=== PATIENT | female | born 1955 | race Caucasian/White ===

== ENCOUNTER → 2018-07-21 | Outpatient (CLI) | payer MEDICARE ==
[~2018-07-21] MED LIST: CLONIDINE0.1 MG PO; HYDROCODONE BIT1 T11 PO; IBUPROFEN IB200 MG PO; LISINOPRIL2.5 MG PO; NKHM
[2018-07-22 08:08] LABS: ALPHA-1-ANTITRYPSIN, SERUM 175 mg/dL (90-200)
== END | disposition home or self-care (01) ==
LOC: LAB 11:23
PROVIDERS: Internal Medicine Critical Care Medicine
DX: J44.9 Chronic obstructive pulmonary disease, unspecified (principal)

== ENCOUNTER 2019-06-20 13:40 | Inpatient (IN) | payer MEDICARE ==
[2019-06-20] VITALS (9 sets, daily range): BP systolic 122–187; BP diastolic 60–86
[~2019-06-20] VITALS: Ht 157.5 cm; Wt 41.4 kg
--- NOTE | ~2019-06-20 | PR ---
[place], [place] PROGRESS NOTE NAME: MARY ALICE FERRERA [facility] #: [id number] UNIT #: [id number] ROOM: 402 DOCTOR: YAAKOV SANTIAGO MD BIRTHDATE: [birth year] DOS: 06/23/2019 SUBJECTIVE: She has no chest pain, breathing is fine, but she has oxygen on. No leg pain dizziness or palpitations. Her appetite is fine. Mood is somewhat subdued. PHYSICAL EXAMINATION: GENERAL: The patient looks pale. VITAL SIGNS: Pulse is regular at 84 beats per minute, blood pressure 139/70. NECK: JVP is normal. LUNGS: Breath sounds are severely diminished bilaterally. EXTREMITIES: No edema in lower extremities. IMPRESSION: This patient most likely had non-ST elevation acute myocardial infarction. She does have many risk factors for coronary artery disease including severe peripheral vascular disease of the lower extremities. RECOMMENDATIONS: Diagnostic heart catheterization and selective coronary angiogram. Her Sawyer test is normal; therefore, transradial approach will be used. I discussed the risks and the benefits including CVA, [place], , hematoma, vascular injury and renal insufficiency and bleeding with the and the patient. They understand and would like to proceed. I talked to her nurse about this plan and will touch bases with Dr. Jane. YAAKOV SANTIAGO MD CM:PNTRANS [id number] YAAKOV SANTIAGO MD 07/04/19 0758 interface
--- NOTE | ~2019-06-20 | EKG ---
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
--- NOTE | ~2019-06-20 | CON ---
[place], [place] REPORT OF CONSULTATION NAME: [facility]ARY ALICE [id number] UNIT #: [id number] ROOM: [facility] DOCTOR: YAAKOV SANTIAGO MD BIRTHDATE: [birth year] DOS: 06/22/2019 HISTORY OF PRESENT ILLNESS: This is a 64-year-old -Sy[place] woman with a history of severe COPD, who is on oxygen chronically. She had protracted respiratory failure in December and required a tracheostomy and ventilation for some time. She also has significant peripheral vascular disease and has had interventions done, including the surgery. This was done in December. Following that, she had some slow recovery and stayed in a detention. She also had developed C. diff colitis and has been anemic for some time now. She has coronary artery disease. In 2013, she had T-wave inversion in anterior chest leads and a diagnostic heart catheterization was done in [facility]. According to the , blockage was found, but the intervention could not be done and she has not had any intervention of her coronary arteries. She does have essential hypertension and hyperlipidemia as well. She has never had a stroke, diabetes mellitus or any kidney problems. She was admitted to the hospital because of increasing shortness of breath and weakness and tiredness. She had an abnormal ECG and I was asked to evaluate and also troponin level was slightly above normal. HOME MEDICATIONS: Include Symbicort, Spiriva, acetaminophen, alprazolam 0.25 mg q.8 h., ProSource Plus for nutrition, aspirin 81 daily, atorvastatin 80 mg daily, cholecalciferol 1000 units daily, diltiazem 30 mg daily, lisinopril 20 mg at bedtime, loperamide 2 mg q.6 h. p.r.n., mirtazapine 50 mg at night, Protonix 40 daily, and Carafate 1 g before meals. PHYSICAL EXAMINATION: GENERAL: This reveals a patient who is alert, oriented and slim. She is pale looking. She is not diaphoretic, not jaundiced. There is no cyanosis. There is no thyromegaly or finger clubbing. VITAL SIGNS: Pulse is 96 and regular, blood pressure 134/80. NECK: JVP is normal. HEART: There is no carotid bruit. A little, very brief systolic sound is audible over the right carotid artery. Cardiac auscultation revealed no murmurs or extra heart sounds. Pedal pulses are very difficult to feel. There are fairly good femoral pulses, with bruit over the right femoral artery. RESPIRATORY: Breath sounds are severely diminished, more so on the left side with adventitious sounds. ABDOMEN: There is no pulsatile mass or bruit. Liver is not enlarged. It is nontender. DIAGNOSTIC STUDIES: ECGs have shown normal sinus rhythm with T-wave inversion in V1-V4. My interpretation of ECG in 2013 was pretty much the same when she had a diagnostic heart catheterization done. LABORATORY DATA: Troponin I levels, 0.188 and 0.119 and 0.90. BUN is 12, creatinine 0.84, serum albumin is 2.4 g/dL, potassium 3.5. Hemoglobin is 10.8 g/dL. IMPRESSION: [place], [place] REPORT OF CONSULTATION NAME: MARY ALICE FERRERA UNIT #: [id number] ROOM: [facility] DOCTOR: YAAKOV SANTIAGO MD BIRTHDATE: [birth year] 1. This patient with coronary artery disease has some slightly increased troponin I level which could represent a [id number] acute myocardial infarction/(NSTEMI). The other possibility is tachycardia and anemia may be contributing to this. 2. Peripheral vascular disease is fairly severe. She does have symptoms when she ambulates, but these are better than before. Intervention was done in November. 3. Moderate anemia is present. 4. Severe chronic obstructive pulmonary disease. RECOMMENDATIONS: 1. An echocardiogram has already been ordered. I will review this. I should add that back in 2013, her LV systolic function was moderately reduced. I believe a Lexiscan Cardiolite study should be performed in this patient to look for any significant ischemia. 2. Sinus tachycardia is being treated with low-dose beta ratna. Diltiazem was discontinued and this has slowed down her heart rate. I think dose can be increased to 50 mg metoprolol tartrate b.i.d. to further reduce the heart rate because of highly suspected NSTEMI. I thank you for this consult. YAAKOV SANTIAGO MD CM:CONSTR:REPORT OF CONSULTATION 1131 06/23/19 0619 interface
--- NOTE | ~2019-06-20 | EKG ---
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: Minoo Sinclair : 1955 Requested By: YAAKOV SANTIAGO Order Number: [id number] Reading MD: Yaakov Santiago MD Measurements Intervals [place] Rate: 96 P: 94 [place]: 128 QRS: 119 QRSD: 104 T: 101 QT: 404 QTc: 511 Interpretive Statements Sinus rhythm,Consider RVH w/ secondary repol abnormality,Abnormal T, consider ischemia in anterior and lateral,ST elevation, consider inferior injury Prolonged QT interval Compared to ECG 06/20/2019 13:50:41 T-wave abnormality now present Possible ischemia now present ST (T wave) deviation now present Myocardial infarct finding now present Prolonged QT interval now present Sinus tachycardia no longer present Right bundle-branch block no longer present Electronically Signed On 06-24-2019 14:20:09 PDT by Yaakov Santiago MD CM:EKGRPT:ELECTROCARDIOGRAM REPORT 1800 1420 YAAKOV AYALA DRAFT REPORT YAAKOV SANTIAGO MD
--- NOTE | ~2019-06-20 | EKG ---
[place], [place] ELECTROCARDIOGRAM REPORT NAME: MARY ALICE FERRERA UNIT #: [id number] ROOM: 402 DOCTOR: LUCY DRAFT REPORT BIRTHDATE: [birth year] [facility] Test Date: 2019-06-21 Test Time: 17:49:39 Pat Name: MARY ALICE FERRERA Department: Room: 402 Gender: F Mac Developer: Eliana Augustin : 1955 Requested By: ANA GARLAND Order Number: [id number] Reading MD: Danii Sharpe MD Measurements Intervals [place] Rate: 115 P: 84 [place]: 130 QRS: 112 QRSD: 100 T: 81 QT: 365 QTc: 505 Interpretive Statements Sinus tachycardia Probable left atrial enlargement Borderline low voltage, extremity leads T wave inversion in V1-4, consider ischemia Borderline ST elevation, lateral leads Prolonged QT interval Compared to ECG 06/20/2019 13:50:41 ST (T wave) deviation now present Prolonged QT interval now present Right bundle-branch block no longer present Electronically Signed On 06-24-2019 14:18:53 PDT by Danii Sharpe MD CM:EKGRPT:ELECTROCARDIOGRAM REPORT [id number] 1418 ANA AYALA DRAFT REPORT ANA GARLAND
--- NOTE | ~2019-06-20 | EKG ---
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
[~2019-06-20 13:40] MED LIST changes: -ARTHRITIS PAIN650 MG PO; -ASPIR LOW81 MG PO; -ATORVASTATIN CA80 M1 PO; -Carafate1 GM PO; -DILTIAZEM HCL30 MG PO; -IMODIUM A-D2 M2 PO; -LISINOPRIL20 MG PO; -MIRTAZAPINE15 M2 PO; -PANTOPRAZOLE SO40 MG PO; -PROSOURCE PLUS30 ML PO; -SPIRIVA RESPIMAT4 GM INH; -SYMB160 INH; -TYLENOL325 M1 PO; -VITAMIN D31000 UNI1 PO; -XANAX0.25 MG PO
[2019-06-20 14:22] LABS: HEMATOCRIT 22.9 % (37.0-47.0); HEMOGLOBIN 7.2 g/dl (12.0-16.0); MEAN CELL VOLUME 91.6 fl (81.0-99.0); MEAN CORPUSCULAR HGB 28.8 pg (27.0-31.0); MEAN CORPUSCULAR HGB CONC 31.4 g/dl (33.0-37.0); MEAN PLATELET VOLUME 8.9 fl (9.6-12.3); PLATELET COUNT AUTOMATED 377 10*3/uL (130-400); RED CELL DISTRI WIDTH 14.9 % (0-14.5); WHITE BLOOD COUNT 16.3 10*3/uL (4.8-10.8)
[2019-06-20 14:36] LABS: ACT PARTIAL THROMBO TIME 27.3 SECONDS (20.0-32.1)
[2019-06-20 14:41] LABS: ALBUMIN 2.6 gm/dl (3.1-4.5); ALKALINE PHOSPHATASE 80 U/L (45-117); BUN 14 mg/dl (7-24); CHLORIDE 101 mmol/L (98-107); CREATININE 0.86 mg/dL (0.55-1.02); POTASSIUM 3.6 mmol/L (3.5-5.1); SGOT/AST 16 IU/L (3-35); SGPT/ALT 14 U/L (12-78); SODIUM 136 mmol/L (136-145)
[2019-06-20 14:42] LABS: TROPONIN I < 0.015 ng/ml (<0.045)
[2019-06-20 14:44] LABS: TOTAL CELLS COUNTED 100 #CELLS
[2019-06-20 14:45] LABS: PLATELET SUFFICIENCY NORMAL (NORMAL)
[2019-06-20 16:16] LABS: BILIRUBIN NEGATIVE (NEGATIVE); BLOOD TRACE-INTACT (NEGATIVE); CLARITY CLEAR (CLEAR); COLOR YELLOW (YELLOW); GLUCOSE NEGATIVE (NEGATIVE); KETONE NEGATIVE (NEGATIVE); LEUKO ESTERASE 2+ (NEGATIVE); NITRITE NEGATIVE (NEGATIVE); UROBILINOGEN 0.2 E.U./dl (0.2-1.0)
[2019-06-20 16:42] LABS: YEAST 1+
--- NOTE | 2019-06-20 18:40 | NUR ---
Spoke with Katelyn MCKEON stated that she is not able to take the this time.
--- NOTE | 2019-06-20 18:45 | NUR ---
Spoke with Mona RN yard supervisor cotton gin, informed her that the floor can not take the Pt at this time.
--- NOTE | 2019-06-20 18:59 | NUR ---
DR SEGURA NOTIFIED OF TEMP 99.1 PRIOR TO STARTING BLOOD. ORDER FOR TYLENOL RECEIVED.
[2019-06-20] MEDS ORDERED: Carafate1 GM PO (19:37)
[2019-06-20] MEDS ORDERED: ATORVASTATIN CA80 M1 PO (19:37)
--- NOTE | 2019-06-20 19:50 | NUR ---
Time: 1951 A 64 year old FEMALE admitted to 4E under services of RAMEZ MANRIQUEZ DO. Pt. arrived via bed from ER. Chief complaint: PNEUMONIA,UTI. AMARILIS MILES
[2019-06-20] MEDS ORDERED: LISINOPRIL20 MG PO (20:04)
[2019-06-20] MEDS ORDERED: PANTOPRAZOLE SO40 MG PO (20:06)
--- NOTE | 2019-06-20 20:26 | NUR ---
NOTIFIED OF BP 174/86 MANUALLY. HOME MED REC UNABLE TO BE UPDATED PATIENT DOES NOT KNOW HER MEDICATIONS/DOSES. STATES HE WILL BRING IN LIST TONIGHT OR TOMORROW. PATIENT IS ONLY SURE THAT SHE TAKES LISINOPRIL 20MG QHS. INSTRUCTED TO GIVE ONE DOSE OF HOME LISINOPRIL TONIGHT. ALSO DISCUSSED 1500 CCs FLUID BOLUSES ORDERED. INSTRUCTED TO ATTEMPT TO GET ANOTHER IV ACCESS & ADMINISTER FLUIDS ORDERED. DISCUSSED HX CHF. ALSO DISCUSSED PATIENT BEING ADMITTED MS. 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
[2019-06-20] MEDS ORDERED: ARTHRITIS PAIN650 MG PO (21:09)
[2019-06-20] MEDS ORDERED: ASPIR LOW81 MG PO (21:14)
[2019-06-20] MEDS ORDERED: TYLENOL325 M1 PO ×2 (21:15)
[2019-06-20] MEDS ORDERED: DILTIAZEM HCL30 MG PO (21:16)
[2019-06-20] MEDS ORDERED: SYMB160 INH (21:17)
[2019-06-20] MEDS ORDERED: SPIRIVA RESPIMAT4 GM INH (21:17)
[2019-06-20] MEDS ORDERED: MIRTAZAPINE15 M2 PO (21:17)
[2019-06-20] MEDS ORDERED: XANAX0.25 MG PO (21:18)
[2019-06-20] MEDS ORDERED: VITAMIN D31000 UNI1 PO (21:19)
[2019-06-20] MEDS ORDERED: PROSOURCE PLUS30 ML PO (21:19)
[2019-06-20] MEDS ORDERED: IMODIUM A-D2 M2 PO (21:19)
--- NOTE | 2019-06-20 21:20 | NUR ---
CALLED IN. MED REC UPDATED PER LIST FROM HOME.
--- NOTE | 2019-06-20 21:55 | NUR ---
FIRST UNIT OF PRBCs COMPLETE AT THIS TIME. VSS. PATIENT DENIES ANY NEW SYMPTOMS. WILL SEND FOR SECOND UNIT. IVF BOLUS INFUSING PER ORDER.
[2019-06-21] VITALS (11 sets, daily range): BP systolic 111–188; BP diastolic 55–88
--- NOTE | 2019-06-21 01:50 | NUR ---
RN IN TO SEE PATIENT AT THIS TIME. PATIENT DENIES ANY NEW/WORSENING SYMPTOMS, BUT BREATHING DOES APPEAR MORE LABORED. POX 99% ON 4L NC. NEW FINE PB RALES HEARD IN BL BASES. BP 186/84 MANUALLY. HR 100S-110S PER CM. TEMP 100.3. PO TYLENOL ADMINISTERED AT THIS TIME. CALLED AT THIS TIME. NEW ORDER TO FOLLOW FOR IV LASIX. ALSO INSTRUCTED TO D/C FLUIDS. STATES SHE WILL BE UP TO SEE PT SHORTLY.
--- NOTE | 2019-06-21 01:53 | NUR ---
FLUIDS DISCONNECTED AT THIS TIME PER ORDER. AT BEDSIDE.
--- NOTE | 2019-06-21 02:15 | NUR ---
IV LASIX ADMINISTERED PER ORDER IN R ARM IV SITE. PATIENT EDUCATED ON STRICT I&O & DAILY WEIGHT. SECOND UNIT OF PRBCs COMPLETE AT 0210. PT STILL APPEARS SOB, BUT STATES SHE IS STARTING TO FEEL LESS ANXIOUS, WHICH IS HELPING HER TO BREATHE MORE EASILY. HOME XANAX ORDERED BY . WILL ADMINISTER ONCE [facility] PROFILES MEDICATION.
--- NOTE | 2019-06-21 03:32 | NUR ---
PATIENT ASLEEP IN BED. EARLIER XANAX APPEARS EFFECTIVE. RESPIRATIONS EASY. NO S/S OF DISTRESS NOTED. O2 IN USE VIA 4L NC. WILL MONITOR. CALL LIGHT IN REACH. BED ALARM INTACT.
[2019-06-21 07:13] LABS: HEMATOCRIT 32.4 % (37.0-47.0); HEMOGLOBIN 10.5 g/dl (12.0-16.0); MEAN CELL VOLUME 88.8 fl (81.0-99.0); MEAN CORPUSCULAR HGB 28.8 pg (27.0-31.0); MEAN CORPUSCULAR HGB CONC 32.4 g/dl (33.0-37.0); MEAN PLATELET VOLUME 9.4 fl (9.6-12.3); PLATELET COUNT AUTOMATED 350 10*3/uL (130-400); RED BLOOD COUNT 3.65 10*6/uL (4.10-5.10); RED CELL DISTRI WIDTH 14.9 % (0-14.5)
[2019-06-21 07:27] LABS: OVALOCYTES FEW; PLATELET SUFFICIENCY NORMAL (NORMAL); TOTAL CELLS COUNTED 100 #CELLS
[2019-06-21 07:28] LABS: POLYCHROMASIA SLIGHT; TOXIC GRANULATION SLIGHT
[2019-06-21 07:30] LABS: ALBUMIN 2.4 gm/dl (3.1-4.5); ALKALINE PHOSPHATASE 80 U/L (45-117); BUN 11 mg/dl (7-24); CHLORIDE 101 mmol/L (98-107); CHOLESTEROL 70 mg/dL (<200); CREATININE 0.73 mg/dL (0.55-1.02); HDL CHOLESTEROL 46 mg/dl (40-60); LDL CHOLESTEROL 12 mg/dL (9-159); PHOSPHOROUS 3.9 mg/dL (2.5-4.9); POTASSIUM 2.8 mmol/L (3.5-5.1); SGOT/AST 13 IU/L (3-35); SGPT/ALT 12 U/L (12-78); SODIUM 137 mmol/L (136-145); TOTAL PROTEIN 6.9 gm/dL (6.4-8.2); TRIGLYCERIDES 59 mg/dl (<150); VLDL CHOLESTEROL 12 mg/dL (6-40)
[2019-06-21 08:01] LABS: VITAMIN D, 25-HYDROXY 27.8 ng/mL (30-100)
--- NOTE | 2019-06-21 09:00 | NUR ---
Dairy Farmer in to talk to patient. Patient states lives at home with . There are few steps in the home. Physician: albania holcomb [facility]acy: [facility] Patient's level of ADLs: MINIMAL ASSIST Patient has working utilities: all working DME: home oxygen, portable tanks from [facility] Follow-up physician's appointment after d/c: will be made by hospitalist nurse director upon discharge Does patient want to access PORTAL?: no Discharge plan discussed with patient, she lives at home with her , she needs minimal assistance with adls and ambulation, she has home oxygen and portable tanks from [facility]. she stated she was in [facility] nursing facility for 8 months and has been home a few weeks, she has [facility] discussed with her a discharge plan and possibly returning to the skilled facility. she declined, stated she would be returning home when able and would like to continue with home health, case management will notify [facility] and resume their services when patient is medically stable for discharge. QAMAR RIVERA
--- NOTE | 2019-06-21 12:21 | NUR ---
PHYSICAL THERAPY Nursing screen received and chart reviewed. Please order PT evaluation if decline in functional mobility presents. Thank you. Elmira Sosa,PT,DPT.
--- NOTE | 2019-06-21 12:30 | NUR ---
Voices no complaints. Says she is just tired. Vitals stable. Pulse ox 97% on 4l nasal cannula.
--- NOTE | 2019-06-21 16:20 | NUR ---
MEDICATED WITH 2 TYLENOL FOR TEMP
--- NOTE | 2019-06-21 16:20 | NUR ---
CALLED INTO ROOM FOR HEART RATE 180. DR. GARLAND MADE AWARE. TEMP RECTALLY 102.3 RECTALLY.
--- NOTE | 2019-06-21 16:30 | NUR ---
SVT CONTINUES ON HEART MONITOR WITH A RATE 180-190'S. PATIENT ASYMPTOMATIC. PLACED ON BEDPAN AND URINE SENT FOR UA/URINE CULTURE.
--- NOTE | 2019-06-21 16:40 | NUR ---
BLOOD PRESSURE 80/50. DR. JAMA HERE AND ORDERS RECEIVED TO TRANSFER TO ICU.
--- NOTE | 2019-06-21 16:55 | NUR ---
Recieved from [facility] w/ SVT rate 180. Adenosine 6mg given on arrival . effective to convert to ST. pt. is febrile on arrival w/ tylenol being given at 1640. DR. Leong present , Attempt to contact Dr. Sharpe for consult notification met with disconnect from ans service, and then connect to cell phone w/o message capability, when i re-called was told to keep trying ,, Dr. Leong aware.
[2019-06-21 17:02] LABS: BILIRUBIN NEGATIVE (NEGATIVE); BLOOD 1+ (NEGATIVE); CLARITY CLEAR (CLEAR); COLOR YELLOW (YELLOW); GLUCOSE NEGATIVE (NEGATIVE); KETONE NEGATIVE (NEGATIVE); LEUKO ESTERASE 1+ (NEGATIVE); NITRITE NEGATIVE (NEGATIVE); SPECIFIC GRAVITY 1.015 (1.005-1.030); UROBILINOGEN 0.2 E.U./dl (0.2-1.0)
[2019-06-21 17:22] LABS: EPITHELIAL CELLS 0-2; WBC 21-30 wbc/hpf (0-5)
[2019-06-21 17:23] LABS: BACTERIA 1+
[2019-06-21 18:00] LABS: HEMOGLOBIN 10.8 g/dl (12.0-16.0); MEAN CELL VOLUME 87.2 fl (81.0-99.0); MEAN CORPUSCULAR HGB 29.4 pg (27.0-31.0); MEAN CORPUSCULAR HGB CONC 33.8 g/dl (33.0-37.0); MEAN PLATELET VOLUME 9.6 fl (9.6-12.3); PLATELET COUNT AUTOMATED 363 10*3/uL (130-400); RED BLOOD COUNT 3.67 10*6/uL (4.10-5.10); RED CELL DISTRI WIDTH 14.9 % (0-14.5); WHITE BLOOD COUNT 16.8 10*3/uL (4.8-10.8)
--- NOTE | 2019-06-21 18:16 | NUR ---
Dr. Sharpe was notified of consult. Orders recieved. Stated he would see pt. in AM.
[2019-06-21 18:20] LABS: ALBUMIN 2.4 gm/dl (3.1-4.5); ALKALINE PHOSPHATASE 84 U/L (45-117); BUN 12 mg/dl (7-24); CHLORIDE 98 mmol/L (98-107); CREATININE 0.84 mg/dL (0.55-1.02); PHOSPHOROUS 2.6 mg/dL (2.5-4.9); POTASSIUM 3.5 mmol/L (3.5-5.1); SGOT/AST 13 IU/L (3-35); SGPT/ALT 11 U/L (12-78); SODIUM 134 mmol/L (136-145); TOTAL PROTEIN 6.9 gm/dL (6.4-8.2)
[2019-06-21 18:27] LABS: BASOPHILS 1 % (0-1); TOTAL CELLS COUNTED 100 #CELLS
[2019-06-21 18:30] LABS: PLATELET SUFFICIENCY NORMAL (NORMAL); POLYCHROMASIA SLIGHT
--- NOTE | 2019-06-21 23:05 | NUR ---
MEDICATED WITH TYLENOL PER PRN ORDER FOR TEMP 101.0.
[2019-06-22] VITALS: BP 143/71
--- NOTE | 2019-06-22 01:00 | NUR ---
TYLENOL EFFECTIVE FOR TEMP.
[2019-06-22 04:00] VITALS: BP 137/70
[2019-06-22 05:07] LABS: BUN 15 mg/dl (7-24); CHLORIDE 101 mmol/L (98-107); CREATININE 0.89 mg/dL (0.55-1.02); POTASSIUM 3.6 mmol/L (3.5-5.1); SODIUM 136 mmol/L (136-145)
[2019-06-22 06:05] LABS: HEMATOCRIT 32.1 % (37.0-47.0); HEMOGLOBIN 10.2 g/dl (12.0-16.0); MEAN CELL VOLUME 90.2 fl (81.0-99.0); MEAN CORPUSCULAR HGB 28.7 pg (27.0-31.0); MEAN CORPUSCULAR HGB CONC 31.8 g/dl (33.0-37.0); MEAN PLATELET VOLUME 9.9 fl (9.6-12.3); PLATELET COUNT AUTOMATED 334 10*3/uL (130-400); RED BLOOD COUNT 3.56 10*6/uL (4.10-5.10); RED CELL DISTRI WIDTH 15.2 % (0-14.5); WHITE BLOOD COUNT 15.4 10*3/uL (4.8-10.8)
[2019-06-22 06:26] LABS: BASOPHILS 1 % (0-1); PLATELET SUFFICIENCY NORMAL (NORMAL); TOTAL CELLS COUNTED 100 #CELLS
[2019-06-22 06:27] LABS: TOXIC GRANULATION SLIGHT; VACUOLATION OF NEUTROPHILS SLIGHT
--- NOTE | 2019-06-22 07:33 | NUR ---
Shift chart check completed.24 HR chart check completed.
[2019-06-22 08:00] VITALS: BP 134/80
--- NOTE | 2019-06-22 09:01 | NUR ---
ON ASSESSMENT PATIENT IS AWAKE,ALERT AND ORIENTED. SHE DENIES PAIN OR SHORTNESS OF BREATH. UP TO BSC TO VOID AND HAVE A SMALL, FORMED, BROWN BM. SEE ALL APPROPRIATE INTERVENTIONS.
[2019-06-22 12:00] VITALS: BP 158/84
--- NOTE | 2019-06-22 12:34 | NUR ---
DR GARLAND NOTIFIED OF TEMP ELEVATION AND THAT TYLENOL HAS BEEN GIVEN.
--- NOTE | 2019-06-22 15:09 | NUR ---
CHICO NOTIFIED OF NEW CONSULT
[2019-06-22 16:00] VITALS: BP 129/70
[2019-06-22 20:00] VITALS: BP 156/80
--- NOTE | 2019-06-22 20:00 | NUR ---
PT ASSISTED BACK TO BED. A&OX3, PLEASANT AND COOPERARTIVE, RESP DYSPNEIC WTIH EXERTION. NO ACUTE DISTRESS NOTED. NO COMPLAINTS VOICED. CECIL PATENT. MEDICATED WITH TYLENOL PER PRN ORDER FOR T 102.2 (T).
[2019-06-23] VITALS: BP 108/62
[2019-06-23 04:00] VITALS: BP 118/62
[2019-06-23 05:31] LABS: BUN 15 mg/dl (7-24); CHLORIDE 95 mmol/L (98-107); CREATININE 1.01 mg/dL (0.55-1.02); POTASSIUM 3.2 mmol/L (3.5-5.1); SODIUM 134 mmol/L (136-145)
[2019-06-23 06:14] LABS: HEMOGLOBIN 10.6 g/dl (12.0-16.0); MEAN CELL VOLUME 92.1 fl (81.0-99.0); MEAN CORPUSCULAR HGB 28.7 pg (27.0-31.0); MEAN CORPUSCULAR HGB CONC 31.2 g/dl (33.0-37.0); MEAN PLATELET VOLUME 9.9 fl (9.6-12.3); PLATELET COUNT AUTOMATED 386 10*3/uL (130-400); RED BLOOD COUNT 3.69 10*6/uL (4.10-5.10); RED CELL DISTRI WIDTH 15.1 % (0-14.5); WHITE BLOOD COUNT 11.9 10*3/uL (4.8-10.8)
[2019-06-23 07:40] LABS: PLATELET SUFFICIENCY NORMAL (NORMAL); TOTAL CELLS COUNTED 100 #CELLS
[2019-06-23 08:00] VITALS: BP 139/70
--- NOTE | 2019-06-23 08:11 | NUR ---
PATIENT RESTING COMFORTABLY IN HER BED AT THIS TIME. RESPIRATORY THERAPY IN TO GIVE PATIENT TREATMENTS. ASSESSMENT COMPLETED. NO S/S OF DISTRESS. DENIES ANY DISCOMFORTS. RESP EASY. CALL LIGHT IN REACH.
--- NOTE | 2019-06-23 09:40 | NUR ---
PATIENT RECEIVED TYLENOL FOR INCREASED TEMPERATURE OF 100.7.
--- NOTE | 2019-06-23 10:39 | NUR ---
DR STEWARD IN TO SEE PATIENT. PATIENT WILL BE DOWNGRADED TO TELEMETRY TODAY. CHICO, STOCK CLIPPER, NOTIFIED. BED RECEIVED. PATIENT NOTIFIED.
--- NOTE | 2019-06-23 11:20 | NUR ---
PATIENT TRANSFERRED TO . REPORT GIVEN TO KAREN WAGNER RN. NO S/S OF DISTRESS. CALL LIGHT PLACED IN REACH.
[2019-06-23 12:00] VITALS: BP 112/62
[2019-06-23 16:00] VITALS: BP 123/68
--- NOTE | 2019-06-23 17:52 | NUR ---
PT HAD 30 BEAT RUN OF VTACH. PT ASYMPTOMATIC. DR SANTIAGO NOTIFIED. ORDERS RECEIVED.
[2019-06-23 18:21] LABS: POTASSIUM 3.7 mmol/L (3.5-5.1)
--- NOTE | 2019-06-23 19:30 | NUR ---
24 HOUR CHART CHECK COMPLETE.
[2019-06-23 20:00] VITALS: BP 148/66
[2019-06-24] VITALS: BP 117/53
[2019-06-24 05:49] LABS: HEMATOCRIT 33.9 % (37.0-47.0); HEMOGLOBIN 10.6 g/dl (12.0-16.0); MEAN CELL VOLUME 91.4 fl (81.0-99.0); MEAN CORPUSCULAR HGB 28.6 pg (27.0-31.0); MEAN CORPUSCULAR HGB CONC 31.3 g/dl (33.0-37.0); MEAN PLATELET VOLUME 9.8 fl (9.6-12.3); PLATELET COUNT AUTOMATED 377 10*3/uL (130-400); RED BLOOD COUNT 3.71 10*6/uL (4.10-5.10); RED CELL DISTRI WIDTH 14.8 % (0-14.5)
[2019-06-24 06:10] LABS: ALBUMIN 2.4 gm/dl (3.1-4.5); ALKALINE PHOSPHATASE 96 U/L (45-117); BUN 15 mg/dl (7-24); CHLORIDE 96 mmol/L (98-107); POTASSIUM 3.3 mmol/L (3.5-5.1); SGOT/AST 13 IU/L (3-35); SGPT/ALT 10 U/L (12-78); SODIUM 134 mmol/L (136-145); TOTAL PROTEIN 7.2 gm/dL (6.4-8.2)
[2019-06-24 06:45] LABS: PLATELET SUFFICIENCY NORMAL (NORMAL); TOTAL CELLS COUNTED 100 #CELLS
--- NOTE | 2019-06-24 06:45 | NUR ---
PT OFF FLOOR AT THIS TIME VIA [facility] TO [facility] FOR HEART CATH. SIDE SEAM ENVELOPE MACHINE OPERATOR ACCOUNTED FOR.
== END 2019-06-24 06:45 | disposition other institution (70) | DRG 871 ==
LOC: ED 13:40 → 4E 17:43 → EDHOLD 17:43 → 4E 18:38 → ICCU 06-21 16:46 → 4E 06-23 11:27
PROVIDERS: Emergency Medicine; Internal Medicine Cardiovascular Disease; Student in an Organized Health Care Education/Training Program; ADMIT Internal Medicine
PROC: 30233N1 Transfusion of Nonautologous Red Blood Cells into Peripheral Vein, Percutaneous Approach (ICD-10-PCS; principal; 2019-06-20)
DX: A41.9 Sepsis, unspecified organism (principal); E43 Unspecified severe protein-calorie malnutrition; I50.33 Acute on chronic diastolic (congestive) heart failure; N39.0 Urinary tract infection, site not specified; J96.11 Chronic respiratory failure with hypoxia; I47.1 Supraventricular tachycardia; Z68.1 Body mass index [BMI] 19.9 or less, adult; R73.9 Hyperglycemia, unspecified; I73.9 Peripheral vascular disease, unspecified; I25.10 Atherosclerotic heart disease of native coronary artery without angina pectoris; I11.0 Hypertensive heart disease with heart failure; E78.5 Hyperlipidemia, unspecified; J43.9 Emphysema, unspecified; D64.9 Anemia, unspecified; Z99.81 Dependence on supplemental oxygen; Z98.891 History of uterine scar from previous surgery; Z87.891 Personal history of nicotine dependence; Z80.8 Family history of malignant neoplasm of other organs or systems; Z79.82 Long term (current) use of aspirin; Z79.899 Other long term (current) drug therapy

== ENCOUNTER → 2019-06-20 | Outpatient (CLI) | payer MEDICARE ==
[~2019-06-20] MED LIST changes: +ARTHRITIS PAIN650 MG PO; +ASPIR LOW81 MG PO; +ATORVASTATIN CA80 M1 PO; +Carafate1 GM PO; +DILTIAZEM HCL30 MG PO; +IMODIUM A-D2 M2 PO; +LISINOPRIL20 MG PO; +MIRTAZAPINE15 M2 PO; +PANTOPRAZOLE SO40 MG PO; +PROSOURCE PLUS30 ML PO; +SPIRIVA RESPIMAT4 GM INH; +SYMB160 INH; +TYLENOL325 M1 PO; +VITAMIN D31000 UNI1 PO; +XANAX0.25 MG PO
[2019-06-20 10:28] LABS: HEMATOCRIT 23.9 % (37.0-47.0); HEMOGLOBIN 7.5 g/dl (12.0-16.0); MEAN CELL VOLUME 91.6 fl (81.0-99.0); MEAN CORPUSCULAR HGB 28.7 pg (27.0-31.0); MEAN CORPUSCULAR HGB CONC 31.4 g/dl (33.0-37.0); MEAN PLATELET VOLUME 9.2 fl (9.6-12.3); PLATELET COUNT AUTOMATED 414 10*3/uL (130-400); RED BLOOD COUNT 2.61 10*6/uL (4.10-5.10); RED CELL DISTRI WIDTH 15.2 % (0-14.5); WHITE BLOOD COUNT 16.5 10*3/uL (4.8-10.8)
[2019-06-20 10:45] LABS: ALBUMIN 2.8 gm/dl (3.1-4.5); ALKALINE PHOSPHATASE 89 U/L (45-117); BUN 14 mg/dl (7-24); CHLORIDE 101 mmol/L (98-107); CREATININE 0.77 mg/dL (0.55-1.02); POTASSIUM 3.4 mmol/L (3.5-5.1); SGOT/AST 15 IU/L (3-35); SGPT/ALT 14 U/L (12-78); SODIUM 136 mmol/L (136-145); TOTAL PROTEIN 7.5 gm/dL (6.4-8.2)
[2019-06-20 11:05] LABS: PLATELET SUFFICIENCY HIGH (NORMAL); POLYCHROMASIA SLIGHT; TOTAL CELLS COUNTED 100 #CELLS
[2019-06-20 11:06] LABS: OVALOCYTES FEW; SCHISTOCYTES FEW
== END | disposition home or self-care (01) ==
LOC: LAB 09:45
PROVIDERS: Nurse Practitioner Family
DX: J43.9 Emphysema, unspecified (principal); R50.9 Fever, unspecified; R06.2 Wheezing; R00.0 Tachycardia, unspecified

== ENCOUNTER 2019-09-13 11:24 | Inpatient (IN) | payer MEDICARE ==
[~2019-09-13] VITALS: Ht 157.4 cm; Wt 48.4 kg
--- NOTE | ~2019-09-13 | PR ---
[place], [place] PROGRESS NOTE NAME: [facility]ARY ALICE [facility]A [id number] UNIT #: [id number] ROOM: 425 DOCTOR: MELISSA GOODMAN MD,TERRELL BIRTHDATE: [birth year] DOS: 09/19/2019 SUBJECTIVE: She has been noted comfortable at this time, resting without any acute distress. Mild cough noted without any sputum expectoration. Shortness of breath, resolving symptoms of fever or chills. OBJECTIVE: VITAL SIGNS: Normal temperature, respiratory rate 20, heart rate 76, blood pressure 145/69. The pulse oxygen saturation on 3 liters nasal cannula 99% saturation recorded. HEENT: Examination shows head was atraumatic. Eyes nonicterus. NECK: Supple. CARDIOVASCULAR: S1, S2 audible. LUNGS: Without any wheeze or crackles. ABDOMEN: Soft, nontender. Bowel sounds present. EXTREMITIES: No new change. LABORATORY DATA: The patient's chest x-ray done this morning was reviewed personally shows resolving pleural fluid patient infiltration in the left lower lung. IMPRESSION: Resolving acute pneumonia and pleural fluid associated with diarrhea, improving acute exacerbation of chronic obstructive pulmonary disease. PLAN OF MANAGEMENT: No change in the plan of care at this time. Continuation of the current plan of management, discharge planning could be started for home discharge today if necessary. TERRELL TORRES MD CM:PNTRANS 0937 0015 TERRELL GOODMAN MD 09/20/19 0013 interface
--- NOTE | ~2019-09-13 | PR ---
[place], [place] PROGRESS NOTE NAME[facility] [id number] UNIT #: [id number] ROOM: 425 DOCTOR: MELISSA GOODMAN MD,TERRELL BIRTHDATE: [birth year] DOS: 09/18/2019 SUBJECTIVE: The patient has been noted about the same shortness breath was noted with exertion has ambulated in the hallway. Denies symptoms of fever or chills. Cough has been noted with small amount of sputum expectoration. There were no symptoms of hemoptysis. OBJECTIVE: VITAL SIGNS: Normal temperature, respiratory rate 18, heart rate 80, blood pressure 184/96-177/81. Pulse oxygen saturation recorded on 3 liters nasal cannula 93% saturation. HEENT: Examination shows head was atraumatic. Eyes nonicterus. NECK: Supple. CARDIOVASCULAR: S1, S2 audible. LUNGS: Decreased breath, lower portion of the lungs bilaterally. There were no wheeze or crackles. ABDOMEN: Soft, nontender. LABORATORY DATA: CBC this morning: WBC count 11.4, hemoglobin 8.7, platelet count 418,000. BMP this morning, normal BUN and creatinine. CO2 of 36. IMPRESSION: 1. Chronic hypercarbic respiratory failure. 2. Left pleural fluid with acute pneumonia as well. 3. Debility. PLAN OF MANAGEMENT: No changes in plan of management. Continue the patient's current therapy as in progress. Repeat a chest x-ray in the morning to reassess the pleural fluid and the pulmonary infiltration prior to discharge planning. TERRELL TORRES MD CM:PNTRANS 1412 1508 TERRELL GOODMAN MD 09/18/19 1507 interface
--- NOTE | ~2019-09-13 | EKG ---
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: : 1955 Requested By: NETTIE RODRIGUEZ Order Number: [id number] Reading MD: Guru Vargas Measurements Intervals [place] Rate: 100 P: 62 [place]: 198 QRS: 85 QRSD: 108 T: 50 QT: 389 QTc: 502 Interpretive Statements Sinus tachycardia Consider left atrial enlargement Incomplete RBBB Consider RVH w/ secondary repol abnormality Prolonged QT interval Compared to ECG 06/23/2019 18:00:59 Sinus rhythm no longer present Myocardial infarct finding no longer present Possible ischemia no longer present Electronically Signed On 09-14-2019 9:39:41 PST by Guru Vargas CM:EKGRPT:ELECTROCARDIOGRAM REPORT [id number] NETTIE RODRIGUEZ EPIPHANY DRAFT REPORT NETTIE RODRIGUEZ
--- NOTE | ~2019-09-13 | CON ---
[place], [place] REPORT OF CONSULTATION NAME: MARY ALICE FERRERA [facility] #: [id number] UNIT #: [id number] ROOM: 425 DOCTOR: TERRELL SMILEY MD BIRTHDATE: [birth year] DOS: 09/14/2019 PULMONARY CONSULTATION, EVALUATION, AND MANAGEMENT CONSULTATION REQUESTED BY: Hospitalist service. REASON FOR CONSULTATION: For assessment of COPD. HISTORY OF PRESENT ILLNESS: This is a 64-year-old white female patient with known history of end-stage renal failure as well as COPD. She has been admitted to this hospital on the date of 09/13/2019. She has been seen in the Emergency Room, she is developing symptoms of gradual increased shortness of breath about a week or so, which are noted worsening. She has been also noted with symptoms of chest congestion and cough as well. She has now been noted symptoms of hemoptysis. The patient denies any symptoms of wheezing ____ reported with exertion as well. REVIEW OF SYSTEMS: CONSTITUTIONAL: Fatigue and tiredness noted without any symptoms of fever or chills. EYES: Denies any burning, redness, or tenderness. EARS, NOSE, THROAT SYMPTOMS: No sore throat, hoarseness, otalgia, postnasal drainage, or epistaxis. CARDIOVASCULAR: Denies angina pain, edema, pain of the lower extremities. GASTROINTESTINAL: Denies dysphagia, nausea, vomiting, diarrhea, abdominal pain, hematemesis, melena, or hematochezia. SKIN: Denies abnormal lesions or rashes. CENTRAL NERVOUS SYSTEM: No dizziness, diplopia, or syncopal episode. Remaining systems were reviewed. They were noted all negative. PAST MEDICAL HISTORY: 1. Noted with history of end-stage chronic obstructive pulmonary disease. 2. Chronic hypoxic respiratory failure. 3. Peripheral arterial disease. 4. Past tracheostomy, which was decannulated and removed. 5. History of hyperlipidemia. 6. Essential hypertension. 7. General anxiety disorder. PAST SURGICAL HISTORY: Noted for: 1. Femoral popliteal bypass grafting in the past. 2. Tracheostomy. SOCIAL HISTORY: The patient is and lives at home. History of tobacco use was known in the past and stated not smoking any cigarettes for the last 1-1/2 years. Denies history of alcohol use or illicit drug use. FAMILY HISTORY: The patient's father with old age. Mother also . [place], [place] REPORT OF CONSULTATION NAME: MARY ALICE FERRERA UNIT #: [id number] ROOM: 425 DOCTOR: TERRELL SMILEY MD BIRTHDATE: [birth year] HOME MEDICATIONS: Listed as Lipitor, aspirin, Tylenol, Symbicort, Coreg, vitamin D, Cardizem, ferrous sulfate, lisinopril, Remeron, Protonix, Carafate, and Spiriva. CURRENT MEDICATIONS: Which were administered on this hospitalization were noted as use of ferrous sulphate, Cardizem, aspirin, Lovenox for DVT prophylaxis. Coreg, Remeron, lisinopril, Lipitor, Mucinex, Solu-Medrol intravenously 40 mg b.i.d., Protonix, Carafate, Pulmicort Respules, DuoNeb, and some other p.r.n. meds. DRUG ALLERGIES: Noted as no known drug allergies. PHYSICAL EXAMINATION: GENERAL: This is a 64-year-old female who has been noted currently awake and alert without any distress. Height of 5 feet 2 inches, weight of 106 pounds. BMI is 19.5. VITAL SIGNS: Normal temperature, respirations 18-20, heart rate 85-110, blood pressure 160/70-176/88. Pulse oxygen saturation recorded on 3 liters nasal cannula 98% saturation. HEENT: Head is atraumatic. Eyes: nonicterus. NECK: Supple. CARDIOVASCULAR: S1, S2 heard. LUNGS: Diffuse reduction in breath sounds with expiratory wheezing. There were no crackles. ABDOMEN: Soft, nontender. Bowel sounds present. EXTREMITIES: Without acute edema. MUSCULOSKELETAL: Without deformity. CENTRAL NERVOUS SYSTEM: The patient was noted essentially intact. LABORATORY DATA: The patient's CBC that was done on admission yesterday was noted as WBC count 17.1, hemoglobin 10.6, and platelet count was elevated. Lactic acid 2.0. CMP yesterday, BUN normal, creatinine was normal. CO2 was 33, chloride of 94. Potassium 3.0, sodium 135. CBC that was done on 09/14/2019, normal WBC count, hemoglobin 9, and platelet count was normal. CMP this morning, normal BUN and creatinine and potassium noted 3.2. RADIOLOGY DATA: Review of chest x-ray was done, PA and lateral view images could not be accessed at that time. The chest x-ray finding reported evidence of increased interstitial markings of the lung was noted with possibility of interstitial lung disease, fluid in the lungs such as interstitial edema or other findings. IMPRESSION: 1. The patient will be currently admitted to the hospital noted with acute exacerbation of chronic obstructive pulmonary disease, acute tracheobronchitis with possibly interstitial lung disease to be considered. 2. History of nicotine abuse, which has been discontinued previously. 3. Past history of tracheostomy and decannulation as well. PLAN OF MANAGEMENT: At this time, continue bronchodilators, oxygen [place], [place] REPORT OF CONSULTATION NAME: MARY ALICE FERRERA UNIT #: [id number] ROOM: 425 DOCTOR: MELISSA GOODMAN MD,TERRELL BIRTHDATE: [birth year] supplementation and the antibiotics were ordered. Continuation of the oxygen supplementation, maintain pulse ox 92% or greater. Supportive therapy, plan of management, care plan treatment will be continued. Arterial blood gas yesterday was noted with hypercapnia, but normal pH. PH is 7.40, pCO2 of 49, pO2 of 95.8 on 4 L nasal cannula. Monitor respiratory status in case of any distress and other issues. The patient will be started on the bilevel treatment. TERRELL TORRES MD CM:CONSTR:REPORT OF CONSULTATION 09/15/19 0137 interface
--- NOTE | ~2019-09-13 | PR ---
[place], [place] PROGRESS NOTE [facility] [id number] UNIT #: [id number] ROOM: 425 DOCTOR: MELISSA GOODMAN MD,TERRELL BIRTHDATE: [birth year] DOS: 09/16/2019 PULMONARY PROGRESS NOTE SUBJECTIVE: The patient noted comfortable at this time, resting in the bed, shortness of breath noted with gradual reduction. Coughing was resolving. Denies symptoms of chest pain, fever or chills. OBJECTIVE: VITAL SIGNS: Normal temperature, respiratory rate 18, heart rate of 66, blood pressure 181/75 previously noted 168/82 at midnight. Pulse oxygen saturation recorded on 2 liters nasal cannula 98% saturation. HEENT: Examination shows head was atraumatic. Eyes nonicterus. NECK: Supple. CARDIOVASCULAR: S1, S2 audible. LUNGS: Noted without any wheezing or crackles. ABDOMEN: Soft, nontender. Bowel sounds present. EXTREMITIES: The patient noted without any acute edema. MUSCULOSKELETAL: The patient without any acute deformities. IMPRESSION: Resolving acute exacerbation of chronic obstructive pulmonary disease, acute tracheobronchitis gradually and progressively. PLAN OF MANAGEMENT: No changes in plan of management. Continue current therapy ambulation was encouraged. Repeat another chest x-ray in the morning to reassess and discharge planning could be started after that. Usual care, other therapy, plan of management. TERRELL TORRES MD CM:PNTRANS [id number] TERRELL GOODMAN MD 09/16/191919 interface
--- NOTE | ~2019-09-13 | EKG ---
[place], [place] ELECTROCARDIOGRAM REPORT NAME: MARY ALICE FERRERA UNIT #: [id number] ROOM: 425 DOCTOR: LUCY DRAFT REPORT BIRTHDATE: [birth year] 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 Sinclair : 1955 Requested By: LAILA SMITH Order Number: [id number] Reading MD: Guru Vargas Measurements Intervals [place] Rate: 103 P: 80 DE: 145 QRS: 94 QRSD: 111 T: 52 QT: 385 QTc: 504 Interpretive Statements Sinus tachycardia Probable left atrial enlargement Probable RVH w/ secondary repol abnormality Prolonged QT interval Compared to ECG 06/23/2019 18:00:59 Sinus rhythm no longer present Myocardial infarct finding no longer present Possible ischemia no longer present Electronically Signed On 09-14-2019 9:40:15 PST by Guru Vargas CM:EKGRPT:ELECTROCARDIOGRAM REPORT [id number] LAILA AYALA DRAFT REPORT LAILA SMITH
--- NOTE | ~2019-09-13 | PR ---
[place], [place] PROGRESS NOTE NAME: MARY ALICE FERRERA UNIT #: [id number] ROOM: 425 DOCTOR: TERRELL SMILEY MD BIRTHDATE: [birth year] DOS: 09/17/2019 PULMONARY PROGRESS NOTE SUBJECTIVE: She has been noted comfortable at this time, resting in the bed, stated that she has not ambulated, was planned to do it today. Shortness of breath has been improving. Mild cough. There was no wheezing stated. OBJECTIVE: VITAL SIGNS: For the patient recorded as blood pressure 194/85, still noted this morning previously noted 160/60 yesterday evening. The respiratory rate of 16, heart rate 84. Normal temperature. Pulse oxygen saturation recorded on 3 liters got 99% saturation. HEENT: Examination shows head was atraumatic. Eyes nonicterus. NECK: Supple. CARDIOVASCULAR: S1, S2 is audible. LUNGS: Noted decreased breath sounds noted in the lungs bilaterally. ABDOMEN: Soft, nontender. Bowel sounds present. EXTREMITIES: No new change. LABORATORY DATA: Chest x-ray was noted, PA and lateral view resolution and improvement in aeration of the right middle lobe, currently noted with a small pleural fluid with possible infiltration in the right lower lobe cannot be completely excluded and considered. BMP today, normal BUN and creatinine. Potassium 3.3, mildly decreased. CBC that was done this morning was reviewed and shows WBC count 11,000, hemoglobin 9.0, hematocrit 30.3, platelet count 434,000, mildly elevated. IMPRESSION: 1. Acute pneumonia with chronic obstructive pulmonary disease as well with acute exacerbation. 2. Small ____ pleural fluid with clinical findings were not noted consistent with acute pneumonia, new onset. PLAN OF MANAGEMENT: Monitor current symptoms at this time. Monitor pleural fluid, which is noted small at the present time. Continue current antibiotic coverage, no changes will be made. Follow the respiratory status closely. Other therapy, plan of management. Additional treatment changes will be recommended based on the progression of the illness. [place], [place] PROGRESS NOTE NAME: MARY ALICE FERRERA UNIT #: [id number] ROOM: 425 DOCTOR: TERRELL SMILEY MD BIRTHDATE: [birth year] TERRELL TORRES MD CM:PNTRANS [id number] TERRELL GOODMAN MD 09/17/191920 interface
--- NOTE | ~2019-09-13 | PR ---
[place], [place] PROGRESS NOTE NAME: MARY ALICE FERRERA UNIT #: [id number] ROOM: 425 DOCTOR: TERRELL SMILEY MD BIRTHDATE: [birth year] DOS: 09/15/2019 SUBJECTIVE: The patient was noted about the same as of yesterday, noted with coughing without any sputum expectoration, has been using the flutter valve. Denies symptoms of chest pain, symptomatic with diplopia, and symptoms of nausea or vomiting. The patient noted mostly bedbound. She has not been noted symptoms of headache or diplopia. Denies any pain of the lower extremities. Denies symptoms of headache. Remaining systems were reviewed, they were noted all negative. PHYSICAL EXAMINATION: GENERAL: She was noted comfortable at this time, resting on the bed this morning of assessment, and has been noted intermittent nonproductive cough upon assessment. VITAL SIGNS: Reported normal temperature, respiratory rate 18, heart rate 88, blood pressure 164/75. Pulse oxygen saturation recorded on 3 liters nasal cannula 97% saturation. HEENT: Examination shows head was atraumatic. Eyes nonicterus. NECK: Supple. CARDIOVASCULAR: S1, S2 audible. LUNGS: The patient noted moderate decreased breath sounds, bilateral expiratory wheezing. ABDOMEN: Soft, nontender. Bowel sounds present. EXTREMITIES: No new change. MUSCULOSKELETAL: Without acute deformities. CENTRAL NERVOUS SYSTEM: The patient was noted essentially unchanged with general weakness. LABORATORY DATA: BMP on this morning, glucose 120, normal BUN and creatinine, and other electrolytes. CBC: WBC count 12.6, hemoglobin 8.7, and platelet count 444,000. IMPRESSION: 1. Acute exacerbation of chronic obstructive pulmonary disease was noted at the present time with persistent nonproductive cough. 2. Past history of tracheostomy and decannulation as well. PLAN OF MANAGEMENT: Add on to help improve the sputum expectoration. Continue bronchodilators and antibiotics. No changes in other medical management, plan at this time needs to be done. Usual care. Other supportive plan of management, care plan of treatment and therapies. [place], [place] PROGRESS NOTE NAME: MARY ALICE FERRERA UNIT #: [id number] ROOM: 425 DOCTOR: TERRELL SMILEY MD BIRTHDATE: [birth year] TERRELL TORRES MD CM:ILDEFONSO [id number] TERRELL GOODMAN MD 09/15/19 1217 interface
--- NOTE | ~2019-09-13 | EKG ---
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: : 1955 Requested By: LAILA SMITH Order Number: [id number] Reading MD: Guru Vargas Measurements Intervals [place] Rate: 109 P: 72 CA: 149 QRS: 94 QRSD: 104 T: 52 QT: 372 QTc: 502 Interpretive Statements Sinus tachycardia Probable left atrial enlargement Consider RVH w/ secondary repol abnormality Prolonged QT interval Compared to ECG 06/23/2019 18:00:59 Sinus rhythm no longer present Myocardial infarct finding no longer present Possible ischemia no longer present Electronically Signed On 09-14-2019 9:42:05 PST by Guru Vargas CM:EKGRPT:ELECTROCARDIOGRAM REPORT [id number] LAILA AYALA DRAFT REPORT LAILA SMITH
[~2019-09-13 11:24] MED LIST changes: +ARTHRITIS PAIN650 MG PO; +ASPIR LOW81 MG PO; +ATORVASTATIN CA80 M1 PO; +Carafate1 GM PO; +DILTIAZEM HCL30 MG PO; +IMODIUM A-D2 M2 PO; +LISINOPRIL20 MG PO; +MIRTAZAPINE15 M2 PO; +PANTOPRAZOLE SO40 MG PO; +PROSOURCE PLUS30 ML PO; +SPIRIVA RESPIMAT4 GM INH; +SYMB160 INH; +TYLENOL325 M1 PO; +VITAMIN D31000 UNI1 PO; +XANAX0.25 MG PO
[2019-09-13 11:51] VITALS: BP 198/98
[2019-09-13 12:14] LABS: BASO # 0.1 10*3/uL (0.0-0.1); BASO % 0.7 % (0.0-1.0); EOS # 0.2 10*3/uL (0.0-0.4); EOS % 1.2 % (1.0-4.0); HEMATOCRIT 34.2 % (37.0-47.0); HEMOGLOBIN 10.6 g/dl (12.0-16.0); LYMPH # 1.2 10*3/uL (1.3-4.4); LYMPH % 7.3 % (27.0-41.0); MEAN CELL VOLUME 89.5 fl (81.0-99.0); MEAN CORPUSCULAR HGB 27.7 pg (27.0-31.0); MEAN PLATELET VOLUME 9.6 fl (9.6-12.3); MONO # 1.3 10*3/uL (0.1-1.0); MONO % 7.6 % (3.0-9.0); NEUT # 14.1 10*3/uL (2.3-7.9); NEUT % 82.4 % (47.0-73.0); PLATELET COUNT AUTOMATED 463 10*3/uL (130-400); RED BLOOD COUNT 3.82 10*6/uL (4.10-5.10); RED CELL DISTRI WIDTH 15.7 % (0-14.5); WHITE BLOOD COUNT 17.1 10*3/uL (4.8-10.8)
[2019-09-13 12:23] VITALS: BP 188/92
[2019-09-13 12:28] LABS: ALBUMIN 3.4 gm/dl (3.1-4.5); ALKALINE PHOSPHATASE 122 U/L (45-117); BUN 17 mg/dl (7-24); CHLORIDE 94 mmol/L (98-107); SGOT/AST 20 IU/L (3-35); SGPT/ALT 12 U/L (12-78); SODIUM 135 mmol/L (136-145); TOTAL PROTEIN 9.8 gm/dL (6.4-8.2)
[2019-09-13 13:35] VITALS: BP 188/90
[2019-09-13] MEDS ORDERED: IRON325 M1 PO (13:51)
[2019-09-13] MEDS ORDERED: CARVEDILOL3.125 MG PO (13:52)
--- NOTE | 2019-09-13 13:54 | NUR ---
A 64, admitted to [facility], under the services of ELADIA Mata DO with a diagnosis of SEPSIS, PNEUMONITIS, HYPOKALEMIA. Chief complaint is COUGH, SOB. Patient arrived via stretcher from ER. Monitor applied. Initial assessment completed. Vital signs taken and recorded. ELADIA MATA DO notified of admission to the unit. Orders received. See assessment for past medical history, medications and allergies. Patient and/or family oriented to unit. [facility] visitation policy reviewed. Clothing/patient valuable form completed. DEXTER TRACY
[2019-09-13 14:35] VITALS: BP 188/92
[2019-09-13 14:40] VITALS: BP 163/112
--- NOTE | 2019-09-13 14:40 | NUR ---
PT ARRIVED TO FLOOR. PT AWAKE, ALERT AND ORIENTED. NO STATED COMPLAINTS. DENIES PAIN AT THIS TIME. PT ON 4L NC. PT SOB EVEN AT REST. PLEASANT AND COOPERATIVE WITH CARE AND ASSESSMENT. BED IN LOWEST LOCKED POSITION, CALL LIGHT WITHIN REACH. PT ORIENTED TO ROOM.
[2019-09-13 16:03] LABS: ABG BASE EXCESS 5.2 mmol/L (-2.0-2.0); ABG HCO3 30.3 mmol/l (22-26); ABG O2 SATURATION 98.4 % (95-97); ARTERIAL BLOOD GAS PCO2 49.2 mmHg (35-45); ARTERIAL BLOOD GAS PH 7.405 (7.35-7.45); ARTERIAL BLOOD GAS PO2 95.8 mmHg (80-90)
--- NOTE | 2019-09-13 17:00 | NUR ---
PT'S BP IS 192/[address] HALL NOTIFIED AND ORDERS OBTAINED.
[2019-09-13 17:32] LABS: BILIRUBIN NEGATIVE (NEGATIVE); BLOOD 1+ (NEGATIVE); CLARITY SL CLOUDY (CLEAR); COLOR YELLOW (YELLOW); GLUCOSE NEGATIVE (NEGATIVE); KETONE NEGATIVE (NEGATIVE); LEUKO ESTERASE 3+ (NEGATIVE); NITRITE NEGATIVE (NEGATIVE); UROBILINOGEN 0.2 E.U./dl (0.2-1.0)
[2019-09-13 17:46] LABS: EPITHELIAL CELLS 16-20; WBC TNTC wbc/hpf (0-5)
[2019-09-13 17:47] LABS: BACTERIA 2+; RBC 21-30 rbc/hpf (0-2)
[2019-09-13 20:00] VITALS: BP 159/79
--- NOTE | 2019-09-14 04:59 | NUR ---
24 HR chart check completed.
[2019-09-14 06:59] LABS: BASO % 0.2 % (0.0-1.0); EOS % 0.4 % (1.0-4.0); HEMATOCRIT 30.2 % (37.0-47.0); MEAN CELL VOLUME 91.2 fl (81.0-99.0); MEAN CORPUSCULAR HGB 27.2 pg (27.0-31.0); MEAN CORPUSCULAR HGB CONC 29.8 g/dl (33.0-37.0); MEAN PLATELET VOLUME 9.4 fl (9.6-12.3); MONO # 0.7 10*3/uL (0.1-1.0); MONO % 6.9 % (3.0-9.0); NEUT # 8.8 10*3/uL (2.3-7.9); NEUT % 81.9 % (47.0-73.0); PLATELET COUNT AUTOMATED 388 10*3/uL (130-400); RED BLOOD COUNT 3.31 10*6/uL (4.10-5.10); RED CELL DISTRI WIDTH 15.8 % (0-14.5); WHITE BLOOD COUNT 10.8 10*3/uL (4.8-10.8)
[2019-09-14 07:15] LABS: ACT PARTIAL THROMBO TIME 26.5 SECONDS (20.0-32.1); INTERNATIONAL NORM RATIO 0.9 (2.0-3.5)
[2019-09-14 07:25] LABS: CHLORIDE 103 mmol/L (98-107); POTASSIUM 3.2 mmol/L (3.5-5.1); SODIUM 140 mmol/L (136-145)
[2019-09-14 07:39] LABS: ALBUMIN 2.6 gm/dl (3.1-4.5); ALKALINE PHOSPHATASE 95 U/L (45-117); BUN 18 mg/dl (7-24); CHOLESTEROL 89 mg/dL (<200); CREATININE 0.76 mg/dL (0.55-1.02); FREE T4 1.83 ng/dl (0.76-1.46); HDL CHOLESTEROL 41 mg/dl (40-60); LDL CHOLESTEROL 32 mg/dL (9-159); PHOSPHOROUS 3.7 mg/dL (2.5-4.9); SGOT/AST 13 IU/L (3-35); SGPT/ALT 11 U/L (12-78); THYROID STIM HORMONE (HS) 0.392 uIU/ml (0.358-4.75); TOTAL PROTEIN 7.8 gm/dL (6.4-8.2); TRIGLYCERIDES 81 mg/dl (<150); VLDL CHOLESTEROL 16 mg/dL (6-40)
--- NOTE | 2019-09-14 07:51 | NUR ---
Nursing screen received and occupational therapy referral received. Thank you. Eloise Godfrey OTR/L
[2019-09-14 08:00] VITALS: BP 176/88
--- NOTE | 2019-09-14 08:30 | NUR ---
PT RESTING IN BED. PT HAS MOIST NONPROD COUGH, SHORT OF BREATH WTIH EXERTION PER PT. OXYGEN IN USE. DR. HALL IN ROOM AWARE PT 180/88 MANUALLY. C/O HEADACHE, RATES PAIN 4-5 ON PAIN SCALE 0-10. MEDICATED WITH TYLENOL PO PER PRN ORDER. SEE EMAR. CALL LIGHT IN REACH. SEE SHIFT ASSESSMENT.
[2019-09-14 08:38] LABS: VITAMIN D, 25-HYDROXY 32.4 ng/mL (30-100)
--- NOTE | 2019-09-14 09:00 | NUR ---
Welding Robot Operator in to talk to patient. Patient states lives at home with . There are few steps in the home. Physician: al[place]ia holcomb Pharmacy: [facility] health services: none Patient's level of ADLs: MINIMAL ASSIST Patient has working utilities: all working DME: home oxygen, portable tanks from [facility], [place] Follow-up physician's appointment after d/c: will be made by hospitalist nurse director upon discharge Does patient want to access PORTAL?: no Discharge plan discussed with patient, she lives at home with , she is independent in adls and ambulation, she has home oxygen and portable tanks, she states she will return home when medically stable, discussed with her VNA and she declines any services at this time, case management will follow. QAMAR RIVERA
--- NOTE | 2019-09-14 10:50 | NUR ---
Occupational Therapy evaluation offered to patient this date. Patient refuses stating that she is independent in all ADLs and mobility and does not feel that she needs any OT at this time. Discharge OT referral Eloise Godfrey OTR/ruma
[2019-09-14 12:00] VITALS: BP 164/88
--- NOTE | 2019-09-14 12:30 | NUR ---
SITTING UP IN BED WITH VISITOR AT HER SIDE. TOLERATED ROUTINE MED WITH NO PROBLEM. CALL LIGHT IN REACH.
--- NOTE | 2019-09-14 14:56 | NUR ---
PHYSICAL THERAPY PT order and nursing screen received. Thank you April Atkinson, PT, DPT
[2019-09-14 16:00] VITALS: BP 167/74
--- NOTE | 2019-09-14 16:00 | NUR ---
PT TOLERATED ROUTINE MED WITH NO PROBLEM. VISITOR AT HIS SIDE. RESP-EASY AND REGULAR. NO C/O AT THIS TIME. OXYGEN IN USE. SEE SHIFT ASSESSMENT. CALL LIGHT IN REACH
--- NOTE | 2019-09-14 18:00 | NUR ---
RESTING IN BED. RESP-EASY AND REGULAR. CALL LIGHT IN REACH.
[2019-09-14 20:00] VITALS: BP 167/70
[2019-09-15] VITALS: BP 183/77
[2019-09-15 06:43] LABS: BASO % 0.2 % (0.0-1.0); HEMATOCRIT 29.1 % (37.0-47.0); HEMOGLOBIN 8.7 g/dl (12.0-16.0); LYMPH # 1.1 10*3/uL (1.3-4.4); LYMPH % 8.4 % (27.0-41.0); MEAN CELL VOLUME 91.5 fl (81.0-99.0); MEAN CORPUSCULAR HGB 27.4 pg (27.0-31.0); MEAN CORPUSCULAR HGB CONC 29.9 g/dl (33.0-37.0); MEAN PLATELET VOLUME 9.5 fl (9.6-12.3); MONO # 0.6 10*3/uL (0.1-1.0); MONO % 4.7 % (3.0-9.0); NEUT # 10.8 10*3/uL (2.3-7.9); NEUT % 85.4 % (47.0-73.0); PLATELET COUNT AUTOMATED 444 10*3/uL (130-400); RED BLOOD COUNT 3.18 10*6/uL (4.10-5.10); RED CELL DISTRI WIDTH 15.8 % (0-14.5); WHITE BLOOD COUNT 12.6 10*3/uL (4.8-10.8)
[2019-09-15 07:12] LABS: CHLORIDE 107 mmol/L (98-107); SODIUM 141 mmol/L (136-145)
[2019-09-15 07:17] LABS: BUN 21 mg/dl (7-24); CREATININE 0.74 mg/dL (0.55-1.02)
[2019-09-15 08:00] VITALS: BP 164/75
--- NOTE | 2019-09-15 08:40 | NUR ---
PT RESTING IN BED. RESP-EASY AND REGULAR. OXYGEN IN USE. NO C/O AT THIS TIME. TOLERATED ROUTINE MED WITH NO PROBLEM. CALL LIGHT IN REACH. SEE SHIFT ASSESSMENT.
--- NOTE | 2019-09-15 09:00 | NUR ---
case management visits with patient, she states she will return home when medically stable, tenative discharge date is tomorrow, case management will follow, patient declines any home needs at this time
--- NOTE | 2019-09-15 11:00 | NUR ---
TOLERATED ROUTINE MED WITH NO PROBLEM. NO C/O AT THIS TIME. CALL LIGHT IN REACH.
[2019-09-15 12:00] VITALS: BP 160/72
--- NOTE | 2019-09-15 14:00 | NUR ---
TOLERATED ROUTINE MED WITH NO PROBLEM. NO C/O AT THIS TIME. CALL LIGHT IN REACH.
[2019-09-15 16:00] VITALS: BP 178/76
--- NOTE | 2019-09-15 16:10 | NUR ---
TOLERATED ROUTINE MED WITH NO PROBLEM. NO C/O AT THIS TIME. VISITORS AT HER SIDE. CALL LIGHT IN REACH.
--- NOTE | 2019-09-15 18:00 | NUR ---
RESTING IN BED. NO C/O AT THIS TIME. CALL LIGHT IN REACH.
[2019-09-15 20:00] VITALS: BP 158/76
--- NOTE | 2019-09-15 20:46 | NUR ---
24 HR chart check completed.
--- NOTE | 2019-09-15 21:00 | NUR ---
RESTING IN BED WITH NO DISTRESS NOTED. RESPIRATIONS EASY. LUNGS DIMINISHED. PULSE OX 93% 3L, HUMIDIFICATION APPLIED. LOOSE COUGH. CALL LIGHT WITHIN REACH. NO VOICED COMPLAINTS. BED ALARM MAINTAINED FOR SAFETY
--- NOTE | 2019-09-15 21:30 | NUR ---
MEDICATED WITH RESTORIL TO ASSIST WITH SLEEP. WILL MONITOR
--- NOTE | 2019-09-15 23:00 | NUR ---
MEDS EFFECTIVE. SLEEPING
[2019-09-16] VITALS: BP 168/82
--- NOTE | 2019-09-16 00:30 | NUR ---
SLEEPING. NO DISTRESS NOTED. RESPIRATIONS EASY. PULSE OX 93% 3L. CALL LIGHT WITHIN REACH
[2019-09-16 06:32] LABS: BASO % 0.2 % (0.0-1.0); HEMATOCRIT 29.2 % (37.0-47.0); HEMOGLOBIN 8.6 g/dl (12.0-16.0); LYMPH # 0.9 10*3/uL (1.3-4.4); LYMPH % 9.1 % (27.0-41.0); MEAN CELL VOLUME 91.8 fl (81.0-99.0); MEAN CORPUSCULAR HGB CONC 29.5 g/dl (33.0-37.0); MEAN PLATELET VOLUME 9.5 fl (9.6-12.3); MONO # 0.4 10*3/uL (0.1-1.0); MONO % 4.5 % (3.0-9.0); NEUT # 8.2 10*3/uL (2.3-7.9); NEUT % 84.5 % (47.0-73.0); PLATELET COUNT AUTOMATED 441 10*3/uL (130-400); RED BLOOD COUNT 3.18 10*6/uL (4.10-5.10); RED CELL DISTRI WIDTH 15.9 % (0-14.5); WHITE BLOOD COUNT 9.6 10*3/uL (4.8-10.8)
[2019-09-16 06:37] LABS: BUN 22 mg/dl (7-24); CHLORIDE 107 mmol/L (98-107); CREATININE 0.72 mg/dL (0.55-1.02); POTASSIUM 3.8 mmol/L (3.5-5.1); SODIUM 143 mmol/L (136-145)
[2019-09-16 08:00] VITALS: BP 181/75
--- NOTE | 2019-09-16 09:00 | NUR ---
case management visits with patient, she states she will return home when medically stable and denies any home needs
[2019-09-16 12:00] VITALS: BP 168/73
[2019-09-16 16:00] VITALS: BP 164/70
[2019-09-16 20:00] VITALS: BP 160/68
--- NOTE | 2019-09-16 21:49 | NUR ---
PATIENT MEDICATED WITH RESTORIL FOR COMPLAINTS OF SLEEPLESSNESS AND RESTLESSNESS, RN WILL MONITOR FOR EFFECTIVENESS
[2019-09-17 06:31] LABS: BASO % 0.2 % (0.0-1.0); HEMATOCRIT 30.3 % (37.0-47.0); LYMPH # 0.9 10*3/uL (1.3-4.4); LYMPH % 8.1 % (27.0-41.0); MEAN CELL VOLUME 91.8 fl (81.0-99.0); MEAN CORPUSCULAR HGB 27.3 pg (27.0-31.0); MEAN CORPUSCULAR HGB CONC 29.7 g/dl (33.0-37.0); MEAN PLATELET VOLUME 9.1 fl (9.6-12.3); MONO # 0.7 10*3/uL (0.1-1.0); MONO % 5.9 % (3.0-9.0); NEUT # 9.3 10*3/uL (2.3-7.9); NEUT % 84.2 % (47.0-73.0); PLATELET COUNT AUTOMATED 434 10*3/uL (130-400); RED CELL DISTRI WIDTH 15.6 % (0-14.5); WHITE BLOOD COUNT 11.1 10*3/uL (4.8-10.8)
[2019-09-17 07:02] LABS: BUN 23 mg/dl (7-24); CHLORIDE 105 mmol/L (98-107); CREATININE 0.65 mg/dL (0.55-1.02); POTASSIUM 3.3 mmol/L (3.5-5.1); SODIUM 144 mmol/L (136-145)
[2019-09-17 08:00] VITALS: BP 194/85
--- NOTE | 2019-09-17 08:00 | NUR ---
IN TO ROOM, PT AWAKE, ALERT AND ORIENTED. NO STATED COMPLAINTS AT THIS TIME. RESPIRATIONS ARE EASY AND REGULAR ON 3L NC. NO SOB NOTED AT REST. COUGH IS HARSH AND PT STATES THAT IT IS NONPRODUCTIVE. PT STATES COUGH IS IMPROVED FROM PREVIOUS DAYS. BED IN LOWEST LOCKED POSITION AND CALL LIGHT WITHIN REACH. WILL CONTINUE TO MONITOR.
--- NOTE | 2019-09-17 11:58 | NUR ---
RESPIRATORY HAD PT UP TO WALK IN THE HALLS PER DR. ARCE'S ORDERS. PT NEEDS 4L O2 WHILE AMBULATING PER RESPIRATORY'S ASSESSMENT.
[2019-09-17 12:00] VITALS: BP 186/79
--- NOTE | 2019-09-17 12:00 | NUR ---
PT. AMBULATED IN GOFF ON 3L, SAT 92%. AFTER APPRX. 120 FT. SAT DECREASING TO 86%. INCREASED TO 4L, SAT INCREASING TO 91%, CONTINUED WALK, PT USING A WHEELCHAIR FOR SUPPORT, PULSE OX MAINTAINING 89 TO 91 % WITH WALK. PT. WENT TO ROOM, THEN WAS ABLE TO WALK ANOTHER TIME WITH ASSIST OF CHAIR, FOR ANOTHER LAP AROUND THE 4TH FLOOR SAT MAINTAINING 89 TO 92%. PT RETURNED TO ROOM, SITTING IN CHAIR WITH 3L O2 ON SAT 94%. TOLERATED WELL.
[2019-09-17 16:00] VITALS: BP 189/88
--- NOTE | 2019-09-17 16:45 | NUR ---
PT. AMBULATED IN THE GOFF ON 4 LITERS, SAT 88 TO 94%. PT. TOLERATED WELL, PT. DID STOP FOR A BREAK, CONTINUED WALK ON 4. RETURNED TO ROOM, RESTING IN BED ON 3 LITERS.
--- NOTE | 2019-09-17 19:34 | NUR ---
24 HOUR CHART CHECK COMPLETED
[2019-09-17 20:00] VITALS: BP 161/88
--- NOTE | 2019-09-17 20:20 | NUR ---
PATIENT ASSESSMENT COMPLETED WITHOUT INCIDENT AT THIS TIME. PATIENT DENIED ANY PAIN OR DISCOMFORT. MEDICATIONS GIVEN ORALLY WITHOUT INCIDENT. CALL LIGHT WITHIN REACH, WILL CONTINUE TO MONITOR.
[2019-09-18] VITALS: BP 177/81
[2019-09-18 06:56] LABS: BASO % 0.2 % (0.0-1.0); HEMATOCRIT 29.2 % (37.0-47.0); HEMOGLOBIN 8.7 g/dl (12.0-16.0); LYMPH % 8.5 % (27.0-41.0); MEAN CELL VOLUME 92.7 fl (81.0-99.0); MEAN CORPUSCULAR HGB 27.6 pg (27.0-31.0); MEAN CORPUSCULAR HGB CONC 29.8 g/dl (33.0-37.0); MEAN PLATELET VOLUME 9.1 fl (9.6-12.3); MONO # 0.5 10*3/uL (0.1-1.0); MONO % 4.6 % (3.0-9.0); NEUT # 9.7 10*3/uL (2.3-7.9); NEUT % 84.9 % (47.0-73.0); PLATELET COUNT AUTOMATED 418 10*3/uL (130-400); RED BLOOD COUNT 3.15 10*6/uL (4.10-5.10); RED CELL DISTRI WIDTH 15.9 % (0-14.5); WHITE BLOOD COUNT 11.4 10*3/uL (4.8-10.8)
[2019-09-18 07:07] LABS: BUN 24 mg/dl (7-24); CHLORIDE 105 mmol/L (98-107); CREATININE 0.65 mg/dL (0.55-1.02); POTASSIUM 3.5 mmol/L (3.5-5.1); SODIUM 144 mmol/L (136-145)
[2019-09-18 08:00] VITALS: BP 184/96
[2019-09-18 16:10] VITALS: BP 162/82
[2019-09-18 20:00] VITALS: BP 176/77
[2019-09-18 20:20] VITALS: BP 196/92
--- NOTE | 2019-09-18 20:24 | NUR ---
CALLED AND INFORMED OF CURRENT BP 196/92 WITH PREVIOUS COMPLICATION OF BP AND ALREADY RECEIVING PRN DOSE IV LABETOLOL AND PRESSURE STILL INCREASED. STATED TO PLACE X1 ORDER 0.1 CLONIDINE.
[2019-09-18 22:30] VITALS: BP 186/82
--- NOTE | 2019-09-18 22:30 | NUR ---
REEVALUATED PT BP AT THIS TIME MANUALLY AT 186/82. NIGHTTIME MEDICATIONS WERE GIVEN AT THIS TIME WHICH INCLUDES MULTIPLE ANTIHYPERTENSIVE AND WILL RECHECK BP IN 2 HOURS.
--- NOTE | 2019-09-18 22:43 | NUR ---
PT IS REQUESTING TEMAZEPAM TO HELP HER SLEEP. PO TEMAZEPAM IS GIVEN AT THIS TIME. WILL CONTINUE TO MONITOR PATIENT
[2019-09-19] VITALS: BP 196/85
--- NOTE | 2019-09-19 00:30 | NUR ---
24 HR chart check completed.
[2019-09-19 00:55] VITALS: BP 164/86
--- NOTE | 2019-09-19 03:45 | NUR ---
SLEEPING. RESP ARE ERND. CALL LIGHT WITHIN REACH
[2019-09-19 04:00] VITALS: BP 168/80
--- NOTE | 2019-09-19 07:35 | NUR ---
CPT ADMINISTERED WITH MECHANICAL PERCUSSER: 10 MINS BILATERALLY WITH PT SIDE LYING. PT TOLERATED WELL. RESPS REGUALR AND UNLABORED.
[2019-09-19 08:00] VITALS: BP 145/69
--- NOTE | 2019-09-19 08:10 | NUR ---
Alert and oriented x3. Lungs diminished with scattered rhonchi throughout. Denies pain. Harsh cough noted, nonproductive. O2 intact at 4.5 l via nc. Denies sob at this time. See assessment.
--- NOTE | 2019-09-19 09:00 | NUR ---
case management visits with patient, she states she will return home when medically stable. discussed with her VNA and she states she doesn't feel she needs any services at home at this time, case management will follow
--- NOTE | 2019-09-19 09:37 | NUR ---
Spoke with Dr. Holbrook. States ok to dc pt from his standpoint. States he reviewed cxr.
--- NOTE | 2019-09-19 09:55 | NUR ---
PHYSICAL THERAPY Patient seen this am 1;1 for therapy visit and was resting supine in bed upon therapist arrival. Patient identified by name / and presented with continuos O2-4L via NC. Patient was very pleasant recording SpO2 98%, HR 75 bpm at rest. Patient transfers supine to sit EOB, then sit to stand CGA x 1. 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 Patient SpO2 91%, HR 89 bpm and following brief seated rest returned to near baseline stats. Patient tolerated all treatment without c/o and remained in bedside chair with call light, tray table and telephone. Will continue per POC as tolerated, total treatment time 15 minutes. Zach Zambrano, INCOME TAX RETURN PREPARER
--- NOTE | 2019-09-19 10:32 | NUR ---
Notified Dr. Jarrett that Dr. Holbrook was in and examined pt. States pt may go home from his standpoint.
[2019-09-19] MEDS ORDERED: AVPAK AZITHROM250 MG PO (12:04)
[2019-09-19] MEDS ORDERED: PREDNISONE10 MG PO (12:04)
[2019-09-19] MEDS ORDERED: AMLODIPINE BESYL5 MG PO (12:04)
[2019-09-19] MEDS ORDERED: MUCINEX ER600 MG PO (12:04)
--- NOTE | 2019-09-19 13:30 | NUR ---
Discharge instructions reviewed with patient. Patient receptive and verbalizes understanding. Follow-up care arranged. Written instructions given to patient. Pt waiting on to pick her up.
--- NOTE | 2019-09-19 13:59 | NUR ---
Pt dc in care of spouse via wheelchair with belongings.
--- NOTE | 2019-09-19 18:43 | NUR ---
PHYSICAL THERAPY CO-SIGN I approve of the Physical Therapy notes written above. PALOMO ROSS, PT, DPT
== END 2019-09-19 13:30 | disposition home or self-care (01) | DRG 871 ==
LOC: ED 11:24 → 4E 13:27 → EDHOLD 13:27 → 4E 14:22
PROVIDERS: Family Medicine; Hospitalist; Internal Medicine; Internal Medicine Critical Care Medicine; Nurse Practitioner Family; ADMIT Family Medicine
DX: A41.9 Sepsis, unspecified organism (principal); J18.9 Pneumonia, unspecified organism; N18.6 End stage renal disease; E87.3 Alkalosis; E87.1 Hypo-osmolality and hyponatremia; J44.0 Chronic obstructive pulmonary disease with (acute) lower respiratory infection; J44.1 Chronic obstructive pulmonary disease with (acute) exacerbation; J96.11 Chronic respiratory failure with hypoxia; J96.12 Chronic respiratory failure with hypercapnia; I13.11 Hypertensive heart and chronic kidney disease without heart failure, with stage 5 chronic kidney disease, or end stage renal disease; J20.9 Acute bronchitis, unspecified; I73.9 Peripheral vascular disease, unspecified; F41.1 Generalized anxiety disorder; E87.6 Hypokalemia; D47.3 Essential (hemorrhagic) thrombocythemia; E87.8 Other disorders of electrolyte and fluid balance, not elsewhere classified; R74.8 Abnormal levels of other serum enzymes; R73.9 Hyperglycemia, unspecified; D50.8 Other iron deficiency anemias; E78.2 Mixed hyperlipidemia; Z99.81 Dependence on supplemental oxygen; Z87.891 Personal history of nicotine dependence; Z98.891 History of uterine scar from previous surgery; Z80.8 Family history of malignant neoplasm of other organs or systems; Z87.01 Personal history of pneumonia (recurrent); Z79.82 Long term (current) use of aspirin; Z79.899 Other long term (current) drug therapy

== ENCOUNTER 2019-10-09 18:18 | Inpatient (IN) | payer MEDICARE ==
[~2019-10-09] VITALS: Ht 157.4 cm; Wt 44.0 kg
[~2019-10-09 18:18] MED LIST changes: +AMLODIPINE BESYL5 MG PO; +AVPAK AZITHROM250 MG PO; +CARVEDILOL3.125 MG PO; +IRON325 M1 PO; +MUCINEX ER600 MG PO; +PREDNISONE10 MG PO
[2019-10-09 18:23] VITALS: BP 147/74
[2019-10-09 19:03] LABS: BASO # 0.1 10*3/uL (0.0-0.1); BASO % 0.8 % (0.0-1.0); EOS # 0.3 10*3/uL (0.0-0.4); EOS % 5.2 % (1.0-4.0); HEMATOCRIT 31.9 % (37.0-47.0); HEMOGLOBIN 9.5 g/dl (12.0-16.0); LYMPH # 0.9 10*3/uL (1.3-4.4); MEAN CELL VOLUME 92.7 fl (81.0-99.0); MEAN CORPUSCULAR HGB 27.6 pg (27.0-31.0); MEAN CORPUSCULAR HGB CONC 29.8 g/dl (33.0-37.0); MEAN PLATELET VOLUME 9.4 fl (9.6-12.3); MONO # 0.7 10*3/uL (0.1-1.0); MONO % 10.9 % (3.0-9.0); NEUT # 4.5 10*3/uL (2.3-7.9); NEUT % 68.5 % (47.0-73.0); PLATELET COUNT AUTOMATED 416 10*3/uL (130-400); RED BLOOD COUNT 3.44 10*6/uL (4.10-5.10); RED CELL DISTRI WIDTH 16.6 % (0-14.5); WHITE BLOOD COUNT 6.5 10*3/uL (4.8-10.8)
[2019-10-09 19:13] LABS: ACT PARTIAL THROMBO TIME 26.2 SECONDS (20.0-32.1); INTERNATIONAL NORM RATIO 0.9 (2.0-3.5)
[2019-10-09 19:34] LABS: ALBUMIN 2.9 gm/dl (3.1-4.5); ALKALINE PHOSPHATASE 164 U/L (45-117); BUN 13 mg/dl (7-24); CHLORIDE 99 mmol/L (98-107); CREATININE 0.86 mg/dL (0.55-1.02); POTASSIUM 2.9 mmol/L (3.5-5.1); SGOT/AST 18 IU/L (3-35); SGPT/ALT 16 U/L (12-78); SODIUM 140 mmol/L (136-145); TOTAL PROTEIN 7.8 gm/dL (6.4-8.2); TROPONIN I 0.024 ng/ml (<0.045)
--- NOTE | 2019-10-09 20:15 | NUR ---
Pt placed on BiPap 10/16 per JIGGER ARTISAN Geraldine. FiO2 is 45% and SpO2 is maintaining at 98%. RR are 25 - VT 467 - VE 10 - HR 78. Alarms on and audible. Pt seems comfortable.
--- NOTE | 2019-10-09 20:30 | NUR ---
Pt decreased FiO2 to 30% on BiPap. SpO2 99%
--- NOTE | 2019-10-09 21:10 | NUR ---
Pt increased to 40% FIO2. SpO2 91% - inc to 93%
[2019-10-09 21:12] VITALS: BP 184/73
--- NOTE | 2019-10-09 21:18 | NUR ---
A 64, admitted to , under the services of ERICA Jasso DO with a diagnosis of RESP FAILURE. SEPSIS. COPD EXACERBATION. PNEUMONITIS. HYPOKALEMIA. Chief complaint is SOB. Patient arrived via bed from ER. Monitor applied. Initial assessment completed. Vital signs taken and recorded. ERICA JASSO DO notified of admission to the unit. Orders received. See assessment for past medical history, medications and allergies. Patient and/or family oriented to unit. [facility] visitation policy reviewed. Clothing/patient valuable form completed. MAYELA GOFF
--- NOTE | 2019-10-09 21:37 | NUR ---
PT STATES SHE HAS NO WOUNDS OR OPEN SORES
--- NOTE | 2019-10-09 21:39 | NUR ---
RT PLACED PT ON BIPAP 10/16 30%
--- NOTE | 2019-10-09 22:32 | NUR ---
DR. SIN AWARE OF HOME MEDS VERIFIED. ORDERS IN PLACE PER WISHES
[2019-10-09 22:41] VITALS: BP 152/63
[2019-10-09 22:46] VITALS: BP 135/56
--- NOTE | 2019-10-09 23:17 | NUR ---
PRIOR TO GIVING LABETOLOL IV PT BP WAS 1525/63 HR 78. AFTER PUSHING THE MED OVER 5 MINUTES PT BP WAS 135/65 HR 69. WILL CONTINUE TO MONITOR THE PATIENT. CALL LIGHT WITHIN REACH
[2019-10-10] VITALS: BP 107/50; BP 145/32
--- NOTE | 2019-10-10 02:05 | NUR ---
24 HR chart check completed.
--- NOTE | 2019-10-10 02:17 | NUR ---
MANUAL BP AT THIS TIME IS 120/64. PT SLEEPING AND EASILY AROUSED. WILL CONTINUE TO MONITOR. CALL LIGHT WITHIN REACH
[2019-10-10 02:18] VITALS: BP 120/64
--- NOTE | 2019-10-10 03:27 | NUR ---
Patient sleeping. Respirations relaxed and easy. Siderails up . [place] on. MAYELA GOFF
[2019-10-10 08:00] VITALS: BP 162/88
[2019-10-10 08:35] LABS: HEMOGLOBIN 9.3 g/dl (12.0-16.0); MEAN CELL VOLUME 91.4 fl (81.0-99.0); MEAN CORPUSCULAR HGB 27.4 pg (27.0-31.0); MEAN PLATELET VOLUME 8.9 fl (9.6-12.3); PLATELET COUNT AUTOMATED 376 10*3/uL (130-400); RED BLOOD COUNT 3.39 10*6/uL (4.10-5.10); RED CELL DISTRI WIDTH 16.7 % (0-14.5); WHITE BLOOD COUNT 3.1 10*3/uL (4.8-10.8)
[2019-10-10 08:51] LABS: ALBUMIN 2.6 gm/dl (3.1-4.5); ALKALINE PHOSPHATASE 150 U/L (45-117); BUN 20 mg/dl (7-24); CHLORIDE 107 mmol/L (98-107); CREATININE 0.76 mg/dL (0.55-1.02); POTASSIUM 3.7 mmol/L (3.5-5.1); SGOT/AST 20 IU/L (3-35); SGPT/ALT 14 U/L (12-78); SODIUM 143 mmol/L (136-145); TOTAL PROTEIN 7.4 gm/dL (6.4-8.2)
[2019-10-10 08:56] LABS: TOTAL CELLS COUNTED 100 #CELLS
[2019-10-10 08:58] LABS: OVALOCYTES FEW; PLATELET SUFFICIENCY NORMAL (NORMAL); SCHISTOCYTES FEW
--- NOTE | 2019-10-10 09:00 | NUR ---
Tree Pruner in to talk to patient. Patient states lives at home with . There are few steps in the home. Physician: albania holcomb Pharmacy: [facility] [place] [facility]: none Patient's level of ADLs: MINIMAL ASSIST Patient has working utilities: all working DME: home oxygen, portable tanks from [facility] Follow-up physician's appointment after d/c: will be made by hospitalist nurse director upon discharge Does patient want to access PORTAL?: no Discharge plan discussed with patient, she lives at home with , she requires minimal assistance with adls and ambulation, 24 hour oxgen from [facility], she states she will return home when medically stable, discussed with her VNA and she declines any home services, case management will follow. QAMAR RIVERA
[2019-10-10 12:00] VITALS: BP 151/66
--- NOTE | 2019-10-10 12:09 | NUR ---
MADE AWARE OF CONSULT. NO NEW ORDERS REC'D.
[2019-10-10 16:00] VITALS: BP 124/63
[2019-10-10 20:00] VITALS: BP 132/67
--- NOTE | 2019-10-10 20:00 | NUR ---
AAOX3 RESTING IN BED WITH HOB ELEVATED. 02 INTQACT AT 3LPM VIA NASAL CANNULA. PULSE OX 93%. SOB AT REST. LUNGS CLEAR BUT DIMINISHED; NO COUGH NOTED AT THIS TIME. CALL LIGHT WITHIN REACH.
--- NOTE | 2019-10-10 22:00 | NUR ---
RESTING IN BED WATCHING T.V. IV ANTIBIOTIC INFUSING ORDERED. 02 INTACT; PT. VOICES NO C/O AT THIS TIME. CALL LIGHT WITHIN REACH.
--- NOTE | 2019-10-10 23:15 | NUR ---
Pt placed on BiPap 12/8 and 40%. Alarms on and audible
[2019-10-11] VITALS: BP 129/53
--- NOTE | 2019-10-11 01:25 | NUR ---
RESTING IN BED ON LEFT SIDE. BIPAP INTACT. CALL LIGHT WITHIN REACH.
--- NOTE | 2019-10-11 04:00 | NUR ---
REMAINS ASLEEP. BIPAP ON. CALL LIGHT WITHIN REACH.
--- NOTE | 2019-10-11 07:20 | NUR ---
PATIENT TAKEN OFF OF BI-PAP, PLACED ON 3 L/M.
[2019-10-11 08:15] VITALS: BP 166/84
--- NOTE | 2019-10-11 09:00 | NUR ---
case management visits with patient, patient breathing improving but will need a couple more days of iv antibiotics prior to discharge home, again discussed with her VNA and she declines any services at this time
[2019-10-11 12:00] VITALS: BP 171/75
--- NOTE | 2019-10-11 12:09 | NUR ---
PHYSICAL THERAPY Joal completed pt moderate level of complexity [address]336 recomend Home with HH and assist by [facility] if progresses well, SNF if needed. PT to work on transfers,amb,strengthening, balance,safety,endurance. Zeina Bruner PT
[2019-10-11 13:16] VITALS: BP 162/80
--- NOTE | 2019-10-11 13:16 | NUR ---
BP 162/80. INFORMED RAO MARTIN. SAID TO MONITOR. NO NEW ORDERS REC'D.
--- NOTE | 2019-10-11 13:59 | NUR ---
OFF FLOOR FOR ABD CT.
--- NOTE | 2019-10-11 14:19 | NUR ---
BACK TO ROOM FROM CT.
[2019-10-11 16:00] VITALS: BP 137/60
--- NOTE | 2019-10-11 16:32 | NUR ---
ORDERED TO BLADDER SCAN PT DUE TO HYDRONEPHROSIS. SCANNED FOR 403CC. HORN INSERTED PER ORDERS/POLICY WITH 550 IMMEDIATELY OUT. RAO MARTIN AT BEDSIDE FOR SCAN AND HORN INSERTION. PT TOLERATED WELL.
[2019-10-11 17:08] LABS: BILIRUBIN NEGATIVE (NEGATIVE); BLOOD NEGATIVE (NEGATIVE); CLARITY SL CLOUDY (CLEAR); COLOR YELLOW (YELLOW); GLUCOSE NEGATIVE (NEGATIVE); KETONE NEGATIVE (NEGATIVE); LEUKO ESTERASE 1+ (NEGATIVE); NITRITE NEGATIVE (NEGATIVE); UROBILINOGEN 0.2 E.U./dl (0.2-1.0)
[2019-10-11 17:13] LABS: BACTERIA 2+; EPITHELIAL CELLS 0-2; HYALINE CAST 0-2; RBC 0-2 rbc/hpf (0-2); WBC TNTC wbc/hpf (0-5); YEAST 4+
[2019-10-11 20:00] VITALS: BP 172/78; BP 179/78
[2019-10-12] VITALS: BP 158/59
--- NOTE | 2019-10-12 | NUR ---
PATIENT RESTING WITH EYES CLOSED. RESPIRATIONS EASY AND UNLABORED ON BIPAP. CALL LIGHT WITHIN REACH. WILL MONITOR.
--- NOTE | 2019-10-12 01:13 | NUR ---
24 HR chart check completed.
[2019-10-12 07:38] LABS: BASO % 0.1 % (0.0-1.0); HEMATOCRIT 27.7 % (37.0-47.0); HEMOGLOBIN 8.3 g/dl (12.0-16.0); LYMPH % 12.2 % (27.0-41.0); MEAN CELL VOLUME 92.6 fl (81.0-99.0); MEAN CORPUSCULAR HGB 27.8 pg (27.0-31.0); MEAN PLATELET VOLUME 9.1 fl (9.6-12.3); MONO # 0.8 10*3/uL (0.1-1.0); MONO % 9.1 % (3.0-9.0); NEUT # 6.5 10*3/uL (2.3-7.9); PLATELET COUNT AUTOMATED 450 10*3/uL (130-400); RED BLOOD COUNT 2.99 10*6/uL (4.10-5.10); RED CELL DISTRI WIDTH 16.8 % (0-14.5); WHITE BLOOD COUNT 8.3 10*3/uL (4.8-10.8)
[2019-10-12 07:56] LABS: ALBUMIN 2.4 gm/dl (3.1-4.5); ALKALINE PHOSPHATASE 128 U/L (45-117); BUN 18 mg/dl (7-24); CHLORIDE 109 mmol/L (98-107); CREATININE 0.62 mg/dL (0.55-1.02); POTASSIUM 3.4 mmol/L (3.5-5.1); SGOT/AST 16 IU/L (3-35); SGPT/ALT 13 U/L (12-78); SODIUM 145 mmol/L (136-145); TOTAL PROTEIN 6.3 gm/dL (6.4-8.2)
[2019-10-12 08:00] VITALS: BP 170/88
--- NOTE | 2019-10-12 09:00 | NUR ---
case management visits with patient, she states she has decided to have a bronch tomorrow, discussed with her VNA at home and she declines any home needs, case management will follow
--- NOTE | 2019-10-12 10:22 | NUR ---
OT NOTE Attempted to see pt this A.M. for OT session and upon arrival pt was out of the room for a medical test. Will check back at a later time/date and continue with POC as able. JIM Alejandre/Don
--- NOTE | 2019-10-12 11:21 | NUR ---
OT NOTE Attempted to see pt this A.M. for OT session and upon arrival pt was on a breathing treatment. Will check back at a later time/date and continue with POC as able. JIM Alejandre/Don
--- NOTE | 2019-10-12 11:30 | NUR ---
PHYSICAL THERAPY PT SUPINE IN BED UPON ARRIVAL BOTH ATTEMPTS THIS A.M. PT REPORTED FIRST ATTEMPT THAT SHE DID NOT SLEEP WELL AND TO CHECK IN LATER. PT ON SECOND ATTEMPT REPORTED " I HAVE BEEN TO ULTRA SOUND AND CT SCAN AND I THINK I HAVE DONE ENOUGH EXERCISE FOR THE DAY. CAN WE PLEASE HOLD OFF?" PHYSICAL THERAPY WILL TRY AGAIN AT A LATER TIME/DATE. MIRNA CHIN PTA
[2019-10-12 12:00] VITALS: BP 189/83
--- NOTE | 2019-10-12 12:20 | NUR ---
RAO COELHO CHAIN TENDER NOTIFIED OF ELEVATED BP
[2019-10-12 13:40] VITALS: BP 170/82
[2019-10-12 16:00] VITALS: BP 184/86
--- NOTE | 2019-10-12 16:20 | NUR ---
RAO NOTIFIED OF ELEVATED BP, PT ASYMPTOMATIC, WILL CONTINUE TO MONITOR
[2019-10-12 20:00] VITALS: BP 174/72; BP 176/73
[2019-10-13] VITALS: BP 158/56
[2019-10-13 06:58] LABS: ALBUMIN 2.3 gm/dl (3.1-4.5); BUN 21 mg/dl (7-24); CHLORIDE 107 mmol/L (98-107); POTASSIUM 3.6 mmol/L (3.5-5.1); SODIUM 145 mmol/L (136-145)
[2019-10-13 07:01] LABS: ALKALINE PHOSPHATASE 115 U/L (45-117); BASO % 0.1 % (0.0-1.0); CREATININE 0.65 mg/dL (0.55-1.02); HEMATOCRIT 26.1 % (37.0-47.0); HEMOGLOBIN 7.6 g/dl (12.0-16.0); LYMPH # 0.7 10*3/uL (1.3-4.4); LYMPH % 9.2 % (27.0-41.0); MEAN CELL VOLUME 93.5 fl (81.0-99.0); MEAN CORPUSCULAR HGB 27.2 pg (27.0-31.0); MEAN CORPUSCULAR HGB CONC 29.1 g/dl (33.0-37.0); MEAN PLATELET VOLUME 9.4 fl (9.6-12.3); MONO # 0.7 10*3/uL (0.1-1.0); MONO % 8.3 % (3.0-9.0); NEUT # 6.5 10*3/uL (2.3-7.9); NEUT % 81.5 % (47.0-73.0); PLATELET COUNT AUTOMATED 441 10*3/uL (130-400); RED BLOOD COUNT 2.79 10*6/uL (4.10-5.10); RED CELL DISTRI WIDTH 16.7 % (0-14.5); SGOT/AST 11 IU/L (3-35); SGPT/ALT 13 U/L (12-78); TOTAL PROTEIN 5.8 gm/dL (6.4-8.2); WHITE BLOOD COUNT 7.9 10*3/uL (4.8-10.8)
--- NOTE | 2019-10-13 07:44 | NUR ---
May convert patient to PO azithromycin if clinically feasible -- all criteria met for IV to PO conversion. Thanks, Maykel Foster, PharmD, formerly [facility]
[2019-10-13 08:00] VITALS: BP 172/88
--- NOTE | 2019-10-13 09:00 | NUR ---
case management visits with patient she will return home when medically stable and continues to deny any home needs
--- NOTE | 2019-10-13 10:11 | NUR ---
OT NOTE Pt was seen this A.M. 1:1 for 20 minute OT session. Upon arrival pt was supine in bed. Pt identified by name and and had no complaints at this time. Pt presented to therapy with continuous 3L-O2 via NC which she remained on throughout the entire session. At rest pt's SpO2 was 95% and heart rate 92 bpm. Pt transferred supine to sit EOB with Tasha. Pt then completed multiple sit to stand transfers from bed level with Tasha and use of w/w. Challenged pt's static standing tolerance needed for increased I in self care tasks and functional transfers. Pt was able to tolerate aprox 3 minutes before sitting due to fatigue and SpO2 dropping to 87%. After aprox 60 seconds pt's SpO2 raised to 92%. Throughout pt was educated on breathing techniques and energy conservation techniques, pt verbalized understanding and presented with good carry over. Pt then transferred back into bed sit to supine with Tasha. There she was left with call light in hand, tray table in place, and bed alarm activated for sfaety. Continue with rec D/C plan to home with home health. JIM Alejandre/Don
--- NOTE | 2019-10-13 10:53 | NUR ---
PHYSICAL THERAPY Patient presented to therapy in supine with 3 liters of spO2 VIA NASAL CANULA. Patient was identified by name and on wristband. Patient gives informed consent for treatment. Patient performed supine to sitting on EOB transfer with SBA. Patient sat on EOB with SBA. Patient's O2 SAT and pulse were taken and recorded as 95% AND PULSE RECORDED 92. Patient performed sit to stand transfer from EOB with CGA X 1. Patient performed ambulation 40' x 1 with Wh Walker and CGA X 1 and other therapist pushing IV line with verbal cues for upright posture, pacing herself, and locking knees into extension. Patient sat on EOB and her vitals were taken again and recorded as O2 SATS= 87% and PULSE 92. Patient recovered to 92% and pulse at 84 within 3 minutes of rest. Patient transferred back to supine in bed with SBA. Patient was left supine in bed with 02 connected to wall outlet with 3 liters of spO2, call light within reach and bed alarm activated. Patient was 1:1 with this [employer] for 19 minutes total. SARAH DOMINGO [employer]
[2019-10-13 12:00] VITALS: BP 158/83
--- NOTE | 2019-10-13 14:20 | NUR ---
PT BEING TRANSFRRED TO [facility] FOR UROLOGY, PT AGREEING, NURSE TO NURSE CALLED IN,
--- NOTE | 2019-10-13 16:04 | NUR ---
Discharge instructions reviewed with patient/family. Patient receptive and verbalizes understanding. Follow-up care arranged. Written instructions given to patient/family. SANGITA HAYS
--- NOTE | 2019-10-14 07:56 | NUR ---
OCCUPATIONAL THERAPY CO-SIGN I approve of the Occupational Therapy notes written above. ERICK MILAN OTR/Don
--- NOTE | 2019-10-17 07:44 | NUR ---
PHYSICAL THERAPY CO-SIGN I approve of the Physical Therapy notes written above. Zeina Bruner PT
== END 2019-10-13 16:04 | disposition short-term general hospital (02) | DRG 871 ==
LOC: ED 18:18 → 4E 19:54 → EDHOLD 19:54 → 4E 20:22
PROVIDERS: Nurse Practitioner Family; Registered Nurse; ADMIT Internal Medicine
PROC: 5A09357 Assistance with Respiratory Ventilation, Less than 24 Consecutive Hours, Continuous Positive Airway Pressure (ICD-10-PCS; principal; 2019-10-09)
DX: A41.9 Sepsis, unspecified organism (principal); J18.9 Pneumonia, unspecified organism; J96.22 Acute and chronic respiratory failure with hypercapnia; J96.21 Acute and chronic respiratory failure with hypoxia; E44.0 Moderate protein-calorie malnutrition; N13.30 Unspecified hydronephrosis; J94.8 Other specified pleural conditions; Z68.1 Body mass index [BMI] 19.9 or less, adult; I73.9 Peripheral vascular disease, unspecified; R91.8 Other nonspecific abnormal finding of lung field; E87.6 Hypokalemia; D50.9 Iron deficiency anemia, unspecified; R73.9 Hyperglycemia, unspecified; J43.9 Emphysema, unspecified; F41.1 Generalized anxiety disorder; R74.8 Abnormal levels of other serum enzymes; I10 Essential (primary) hypertension; E78.2 Mixed hyperlipidemia; Z99.81 Dependence on supplemental oxygen; Z87.891 Personal history of nicotine dependence; Z98.891 History of uterine scar from previous surgery; Z80.8 Family history of malignant neoplasm of other organs or systems; Z84.89 Family history of other specified conditions; Z79.82 Long term (current) use of aspirin; Z79.899 Other long term (current) drug therapy

== ENCOUNTER → 2019-12-08 | Outpatient (CLI) | payer MEDICARE | END | disposition home or self-care (01) | LOC: MRI 09:36 | DX: I67.89 Other cerebrovascular disease (principal); J32.0 Chronic maxillary sinusitis; Z85.118 Personal history of other malignant neoplasm of bronchus and lung ==

== ENCOUNTER 2021-05-21 15:02 | Inpatient (IN) | payer MEDICARE, MEDICAID ==
[~2021-05-21] VITALS: Ht 152.4 cm; Wt 45.4 kg
[2021-05-21 15:08] VITALS: BP 87/73
[2021-05-21 15:10] VITALS: BP 93/65
[2021-05-21 15:27] VITALS: BP 121/67
[2021-05-21 16:13] LABS: HEMATOCRIT 41.2 % (37.0-47.0); MEAN CELL VOLUME 98.1 fl (81.0-99.0); MEAN CORPUSCULAR HGB 29.5 pg (27.0-31.0); MEAN CORPUSCULAR HGB CONC 30.1 g/dl (33.0-37.0); MEAN PLATELET VOLUME 10.5 fl (9.6-12.3); PLATELET COUNT AUTOMATED 235 10*3/uL (130-400); RED CELL DISTRI WIDTH 14.8 % (0-14.5); WHITE BLOOD COUNT 16.9 10*3/uL (4.8-10.8)
[2021-05-21 16:24] LABS: ACT PARTIAL THROMBO TIME 32.9 SECONDS (20.0-32.1)
[2021-05-21 16:32] LABS: ALBUMIN 3.6 gm/dl (3.1-4.5); CREATININE 3.33 mg/dL (0.55-1.02); POTASSIUM 5.5 mmol/L (3.5-5.1); TOTAL PROTEIN 8.1 gm/dL (6.4-8.2)
[2021-05-21 16:56] LABS: BURR CELLS FEW; PLATELET SUFFICIENCY NORMAL (NORMAL); TOTAL CELLS COUNTED 100 #CELLS
[2021-05-21 19:29] LABS: BILIRUBIN Negative (Negative); BLOOD 2+ (Negative); CLARITY Turbid (Clear); COLOR Dark Yellow (Yellow); GLUCOSE Negative (Negative); KETONE Negative (Negative); LEUKO ESTERASE 3+ (Negative); NITRITE Negative (Negative); PH 6.5 (4.5-8.0)
[2021-05-21 19:30] VITALS: BP 141/55
[2021-05-21 19:35] LABS: BACTERIA 3+; WBC TNTC wbc/hpf (0-5)
[2021-05-21 22:32] VITALS: BP 134/50
[2021-05-22 04:55] VITALS: BP 138/54
[2021-05-22 06:00] LABS: ALBUMIN 3.1 gm/dl (3.1-4.5); CREATININE 2.77 mg/dL (0.55-1.02); THYROID STIM HORMONE (HS) 1.21 uIU/ml (0.358-4.75)
[2021-05-22 06:08] LABS: POTASSIUM 4.1 mmol/L (3.5-5.1)
[2021-05-22 06:13] LABS: HEMATOCRIT 35.2 % (37.0-47.0); MEAN CELL VOLUME 97.2 fl (81.0-99.0); MEAN CORPUSCULAR HGB 29.8 pg (27.0-31.0); MEAN CORPUSCULAR HGB CONC 30.7 g/dl (33.0-37.0); MEAN PLATELET VOLUME 10.8 fl (9.6-12.3); PLATELET COUNT AUTOMATED 216 10*3/uL (130-400); RED BLOOD COUNT 3.62 10*6/uL (4.10-5.10); RED CELL DISTRI WIDTH 14.8 % (0-14.5); WHITE BLOOD COUNT 8.1 10*3/uL (4.8-10.8)
[2021-05-22 06:46] LABS: ACT PARTIAL THROMBO TIME 32.7 SECONDS (20.0-32.1)
[2021-05-22 07:13] LABS: BURR CELLS FEW; TOTAL CELLS COUNTED 100 #CELLS; TOXIC GRANULATION SLIGHT
[2021-05-22 07:14] LABS: PLATELET SUFFICIENCY NORMAL (NORMAL)
[2021-05-22 07:15] VITALS: BP 134/74
[2021-05-22 08:40] VITALS: BP 168/73
[2021-05-22] MEDS ORDERED: NORVASC10 MG PO (10:02)
[2021-05-22 12:00] VITALS: BP 167/63
[2021-05-22 16:00] VITALS: BP 171/65
[2021-05-22 20:00] VITALS: BP 166/60
[2021-05-23] VITALS (10 sets, daily range): BP systolic 110–183; BP diastolic 57–92
[2021-05-23 06:00] LABS: CREATININE 1.48 mg/dL (0.55-1.02); POTASSIUM 3.8 mmol/L (3.5-5.1); TOTAL PROTEIN 7.5 gm/dL (6.4-8.2)
[2021-05-23 06:07] LABS: HEMATOCRIT 35.4 % (37.0-47.0); MEAN CELL VOLUME 96.5 fl (81.0-99.0); MEAN CORPUSCULAR HGB 29.2 pg (27.0-31.0); MEAN CORPUSCULAR HGB CONC 30.2 g/dl (33.0-37.0); MEAN PLATELET VOLUME 10.5 fl (9.6-12.3); PLATELET COUNT AUTOMATED 216 10*3/uL (130-400); RED BLOOD COUNT 3.67 10*6/uL (4.10-5.10); RED CELL DISTRI WIDTH 14.7 % (0-14.5); WHITE BLOOD COUNT 7.8 10*3/uL (4.8-10.8)
[2021-05-23 07:26] LABS: PLATELET SUFFICIENCY NORMAL (NORMAL); TOTAL CELLS COUNTED 100 #CELLS
[2021-05-23 11:24] LABS: ARTERIAL BLOOD GAS PO2 83.4 (80-90)
[2021-05-23 11:25] LABS: ABG BASE EXCESS -5.8 mmol/L (-2.0-2.0); ARTERIAL BLOOD GAS PH 7.152 (7.35-7.45)
[2021-05-23 13:37] LABS: ABG BASE EXCESS -2.3 mmol/L (-2.0-2.0); ARTERIAL BLOOD GAS PH 7.269 (7.35-7.45); ARTERIAL BLOOD GAS PO2 88.2 (80-90)
[2021-05-24] VITALS (7 sets, daily range): BP systolic 76–155; BP diastolic 49–76
[2021-05-24 03:25] LABS: ABG BASE EXCESS -2.6 mmol/L (-2.0-2.0); ARTERIAL BLOOD GAS PH 7.276 (7.35-7.45); ARTERIAL BLOOD GAS PO2 144.9 (80-90)
[2021-05-24 06:05] LABS: ALBUMIN 2.6 gm/dl (3.1-4.5); CREATININE 1.83 mg/dL (0.55-1.02); POTASSIUM 3.4 mmol/L (3.5-5.1)
[2021-05-24 06:31] LABS: HEMATOCRIT 32.5 % (37.0-47.0); MEAN CELL VOLUME 95.9 fl (81.0-99.0); MEAN CORPUSCULAR HGB 29.2 pg (27.0-31.0); MEAN CORPUSCULAR HGB CONC 30.5 g/dl (33.0-37.0); MEAN PLATELET VOLUME 10.9 fl (9.6-12.3); PLATELET COUNT AUTOMATED 194 10*3/uL (130-400); RED BLOOD COUNT 3.39 10*6/uL (4.10-5.10); RED CELL DISTRI WIDTH 14.8 % (0-14.5); WHITE BLOOD COUNT 13.6 10*3/uL (4.8-10.8)
[2021-05-24 06:49] LABS: ACT PARTIAL THROMBO TIME 33.3 SECONDS (20.0-32.1)
[2021-05-24 07:04] LABS: TOTAL CELLS COUNTED 100 #CELLS
[2021-05-24 07:05] LABS: PLATELET SUFFICIENCY NORMAL (NORMAL)
[2021-05-24 07:21] LABS: ABG BASE EXCESS -2.3 mmol/L (-2.0-2.0); ARTERIAL BLOOD GAS PH 7.274 (7.35-7.45); ARTERIAL BLOOD GAS PO2 224.1 (80-90)
[2021-05-24 11:57] LABS: HEMATOCRIT 34.8 % (37.0-47.0); MEAN CELL VOLUME 95.3 fl (81.0-99.0); MEAN CORPUSCULAR HGB 29.6 pg (27.0-31.0); MEAN PLATELET VOLUME 10.3 fl (9.6-12.3); PLATELET COUNT AUTOMATED 199 10*3/uL (130-400); RED BLOOD COUNT 3.65 10*6/uL (4.10-5.10); RED CELL DISTRI WIDTH 14.6 % (0-14.5); WHITE BLOOD COUNT 14.2 10*3/uL (4.8-10.8)
[2021-05-24 12:12] LABS: ALBUMIN 2.5 gm/dl (3.1-4.5); CREATININE 1.81 mg/dL (0.55-1.02); POTASSIUM 3.4 mmol/L (3.5-5.1)
[2021-05-24 12:17] LABS: ABG BASE EXCESS -2.9 mmol/L (-2.0-2.0); ARTERIAL BLOOD GAS PH 7.295 (7.35-7.45); ARTERIAL BLOOD GAS PO2 77.3 (80-90)
[2021-05-24 12:22] LABS: PLATELET SUFFICIENCY NORMAL (NORMAL); TOTAL CELLS COUNTED 100 #CELLS
[2021-05-24 12:23] LABS: DOHLE BODIES FEW; VACUOLATION OF NEUTROPHILS SLIGHT
[2021-05-25] VITALS: BP 144/69
[2021-05-25 04:00] VITALS: BP 113/54
[2021-05-25 06:11] LABS: POTASSIUM 3.5 mmol/L (3.5-5.1)
[2021-05-25 06:23] LABS: ALBUMIN 2.4 gm/dl (3.1-4.5); CREATININE 2.82 mg/dL (0.55-1.02); TOTAL PROTEIN 6.8 gm/dL (6.4-8.2)
[2021-05-25 06:29] LABS: HEMATOCRIT 31.4 % (37.0-47.0); MEAN CELL VOLUME 95.7 fl (81.0-99.0); MEAN CORPUSCULAR HGB 29.3 pg (27.0-31.0); MEAN CORPUSCULAR HGB CONC 30.6 g/dl (33.0-37.0); PLATELET COUNT AUTOMATED 211 10*3/uL (130-400); RED BLOOD COUNT 3.28 10*6/uL (4.10-5.10); RED CELL DISTRI WIDTH 14.6 % (0-14.5); WHITE BLOOD COUNT 15.2 10*3/uL (4.8-10.8)
[2021-05-25 06:52] LABS: TOTAL CELLS COUNTED 100 #CELLS
[2021-05-25 06:53] LABS: BURR CELLS FEW; OVALOCYTES FEW; PLATELET SUFFICIENCY NORMAL (NORMAL)
[2021-05-25 08:00] VITALS: BP 104/59
[2021-05-25 10:17] LABS: ARTERIAL BLOOD GAS PH 7.229 (7.35-7.45); ARTERIAL BLOOD GAS PO2 58.7 (80-90)
[2021-05-25 10:19] LABS: ABG BASE EXCESS -5.7 mmol/L (-2.0-2.0)
[2021-05-25 12:00] VITALS: BP 125/54
[2021-05-25 16:00] VITALS: BP 126/71
[2021-05-25 20:00] VITALS: BP 153/72
[2021-05-26] VITALS: BP 132/73
[2021-05-26 04:00] VITALS: BP 142/72
[2021-05-26 05:05] LABS: HEMATOCRIT 30.3 % (37.0-47.0); MEAN CELL VOLUME 95.3 fl (81.0-99.0); MEAN CORPUSCULAR HGB 28.9 pg (27.0-31.0); MEAN CORPUSCULAR HGB CONC 30.4 g/dl (33.0-37.0); MEAN PLATELET VOLUME 10.4 fl (9.6-12.3); PLATELET COUNT AUTOMATED 193 10*3/uL (130-400); RED BLOOD COUNT 3.18 10*6/uL (4.10-5.10); RED CELL DISTRI WIDTH 14.7 % (0-14.5); WHITE BLOOD COUNT 13.1 10*3/uL (4.8-10.8)
[2021-05-26 05:15] LABS: ALBUMIN 2.1 gm/dl (3.1-4.5); POTASSIUM 3.4 mmol/L (3.5-5.1); TOTAL PROTEIN 6.4 gm/dL (6.4-8.2)
[2021-05-26 06:06] LABS: TOTAL CELLS COUNTED 100 #CELLS
[2021-05-26 06:09] LABS: PLATELET SUFFICIENCY NORMAL (NORMAL)
[2021-05-26 08:00] VITALS: BP 116/59
[2021-05-26 12:00] VITALS: BP 144/57; BP 93/39
[2021-05-26 16:00] VITALS: BP 143/62
[2021-05-26 20:00] VITALS: BP 154/61
[2021-05-27] VITALS: BP 96/47
[2021-05-27 04:00] VITALS: BP 97/53
[2021-05-27 05:57] LABS: HEMATOCRIT 25.4 % (37.0-47.0); MEAN CELL VOLUME 95.8 fl (81.0-99.0); MEAN CORPUSCULAR HGB 29.4 pg (27.0-31.0); MEAN CORPUSCULAR HGB CONC 30.7 g/dl (33.0-37.0); MEAN PLATELET VOLUME 10.4 fl (9.6-12.3); PLATELET COUNT AUTOMATED 143 10*3/uL (130-400); RED BLOOD COUNT 2.65 10*6/uL (4.10-5.10); RED CELL DISTRI WIDTH 14.9 % (0-14.5); WHITE BLOOD COUNT 11.2 10*3/uL (4.8-10.8)
[2021-05-27 06:24] LABS: ALBUMIN 2.4 gm/dl (3.1-4.5); CREATININE 2.66 mg/dL (0.55-1.02); POTASSIUM 3.1 mmol/L (3.5-5.1)
[2021-05-27 06:26] LABS: TOTAL PROTEIN 5.5 gm/dL (6.4-8.2)
[2021-05-27 07:46] LABS: BURR CELLS MODERATE; PLATELET SUFFICIENCY NORMAL (NORMAL); SCHISTOCYTES FEW; TOTAL CELLS COUNTED 100 #CELLS
[2021-05-27 08:00] VITALS: BP 95/58
[2021-05-27 12:00] VITALS: BP 123/62
[2021-05-27 16:00] VITALS: BP 129/54
[2021-05-27 20:00] VITALS: BP 121/52
[2021-05-28] VITALS: BP 132/59
[2021-05-28 04:00] VITALS: BP 116/57
[2021-05-28 05:37] LABS: ALBUMIN 2.5 gm/dl (3.1-4.5); CREATININE 2.64 mg/dL (0.55-1.02); TOTAL PROTEIN 5.8 gm/dL (6.4-8.2)
[2021-05-28 06:05] LABS: HEMATOCRIT 27.2 % (37.0-47.0); MEAN CELL VOLUME 97.1 fl (81.0-99.0); MEAN CORPUSCULAR HGB 29.6 pg (27.0-31.0); MEAN CORPUSCULAR HGB CONC 30.5 g/dl (33.0-37.0); MEAN PLATELET VOLUME 10.8 fl (9.6-12.3); NUCLEATED RED BLOOD CELL 0.1 % (0.0-0.0); PLATELET COUNT AUTOMATED 159 10*3/uL (130-400); RED CELL DISTRI WIDTH 14.8 % (0-14.5); WHITE BLOOD COUNT 18.8 10*3/uL (4.8-10.8)
[2021-05-28 06:48] LABS: ACANTHOCYTES FEW; PLATELET SUFFICIENCY NORMAL (NORMAL); SCHISTOCYTES FEW; TOTAL CELLS COUNTED 100 #CELLS; TOXIC GRANULATION SLIGHT
[2021-05-28 08:00] VITALS: BP 106/57
[2021-05-28 12:00] VITALS: BP 107/48
== END 2021-05-28 15:38 | disposition hospice, inpatient (51) | DRG 871 ==
LOC: ED 15:02 → ICCU 18:31 → EDHOLD 18:31 → ICCU 05-22 08:08
PROVIDERS: Emergency Medicine; Hospitalist; Internal Medicine; ADMIT Family Medicine; ATTEND Family Medicine
PROC: 0DB68ZX Excision of Stomach, Via Natural or Artificial Opening Endoscopic, Diagnostic (ICD-10-PCS; principal; 2021-05-23)
PROC: 0DBE8ZX Excision of Large Intestine, Via Natural or Artificial Opening Endoscopic, Diagnostic (ICD-10-PCS; 2021-05-23)
PROC: 5A09357 Assistance with Respiratory Ventilation, Less than 24 Consecutive Hours, Continuous Positive Airway Pressure (ICD-10-PCS; 2021-05-23)
PROC: 02HV33Z Insertion of Infusion Device into Superior Vena Cava, Percutaneous Approach (ICD-10-PCS; 2021-05-24)
PROC: B548ZZA Ultrasonography of Superior Vena Cava, Guidance (ICD-10-PCS; 2021-05-24)
PROC: 5A09357 Assistance with Respiratory Ventilation, Less than 24 Consecutive Hours, Continuous Positive Airway Pressure (ICD-10-PCS; 2021-05-24)
PROC: 5A09457 Assistance with Respiratory Ventilation, 24-96 Consecutive Hours, Continuous Positive Airway Pressure (ICD-10-PCS; 2021-05-25)
PROC: 5A09357 Assistance with Respiratory Ventilation, Less than 24 Consecutive Hours, Continuous Positive Airway Pressure (ICD-10-PCS; 2021-05-28)
DX: A41.9 Sepsis, unspecified organism (principal); N17.0 Acute kidney failure with tubular necrosis; K29.71 Gastritis, unspecified, with bleeding; J18.9 Pneumonia, unspecified organism; K57.31 Diverticulosis of large intestine without perforation or abscess with bleeding; J96.11 Chronic respiratory failure with hypoxia; N30.01 Acute cystitis with hematuria; K55.9 Vascular disorder of intestine, unspecified; R65.20 Severe sepsis without septic shock; I95.9 Hypotension, unspecified; D64.9 Anemia, unspecified; I25.10 Atherosclerotic heart disease of native coronary artery without angina pectoris; E83.41 Hypermagnesemia; Z51.5 Encounter for palliative care; E87.5 Hyperkalemia; R74.01 Elevation of levels of liver transaminase levels; I10 Essential (primary) hypertension; E78.5 Hyperlipidemia, unspecified; J43.9 Emphysema, unspecified; I73.9 Peripheral vascular disease, unspecified; E87.8 Other disorders of electrolyte and fluid balance, not elsewhere classified; I48.91 Unspecified atrial fibrillation; Z99.81 Dependence on supplemental oxygen; Z98.891 History of uterine scar from previous surgery; Z79.82 Long term (current) use of aspirin; Z79.899 Other long term (current) drug therapy; Z87.891 Personal history of nicotine dependence

== ENCOUNTER 2021-05-28 15:46 | Inpatient (IN) | payer OTHER ==
[~2021-05-28] VITALS: Ht 152.4 cm; Wt 45.4 kg
[2021-05-28 15:38] VITALS: BP 112/55
[~2021-05-28 15:46] MED LIST changes: +NORVASC10 MG PO
[2021-05-28 22:00] VITALS: BP 134/59
[2021-05-29 04:00] VITALS: BP 152/40
[2021-05-29 07:30] VITALS: BP 105/47
[2021-05-29 10:09] VITALS: BP 148/90
[2021-05-29 11:01] VITALS: BP 54/26
== END 2021-05-29 11:57 | DRG 189 ==
LOC: ICCU 15:46
PROVIDERS: ADMIT Internal Medicine; ATTEND Internal Medicine
PROC: 5A09357 Assistance with Respiratory Ventilation, Less than 24 Consecutive Hours, Continuous Positive Airway Pressure (ICD-10-PCS; principal; 2021-05-28)
DX: J96.01 Acute respiratory failure with hypoxia (principal); N17.0 Acute kidney failure with tubular necrosis; K92.2 Gastrointestinal hemorrhage, unspecified; J96.02 Acute respiratory failure with hypercapnia; Z51.5 Encounter for palliative care